=== PATIENT | female | born 1945 | race Caucasian/White ===

== ENCOUNTER 2019-08-19 07:58 | Outpatient (CLI) | payer MEDICARE, SELFPAY ==
[2019-08-19 08:12] LABS: Basophils Absolute Auto 0.09 K/mm3 (0.00-0.10); Eosinophils Absolute Auto 0.63 K/mm3 (0.02-0.50); Eosinophils Percent Auto 7.3 % (1.0-6.0); Hematocrit 40.7 % (35.0-42.0); Hemoglobin 13.6 g/dL (11.7-13.8); Immature Granulocyte Absolute 0.03 K/mm3 (0.00-0.00); Immature Granulocyte Percent A 0.3 % (0.0-0.0); Lymphocytes Absolute Auto 3.44 K/mm3 (1.10-4.50); Lymphocytes Percent Auto 39.7 % (18.0-42.0); Mean Corpuscular HGB Conc 33.4 g/dL (32.0-36.0); Mean Corpuscular Hemoglobin 30.4 pg (27.0-31.0); Mean Corpuscular Volume 91.1 fL (78.0-102.0); Mean Platelet Volume 9.8 fl (9.2-11.8); Monocytes Absolute Auto 0.75 K/mm3 (0.10-0.90); Monocytes Percent Auto 8.7 % (2.0-11.0); Neutrophils Absolute Auto 3.7 K/mm3 (1.7-7.2); Platelet Count Result 296 K/mm3 (150-420); Red Blood Count 4.47 M/mm3 (4.20-5.40); Red Cell Distribution Width 13.1 % (11.6-14.4); White Blood Count 8.7 K/mm3 (4.8-10.8)
[2019-08-19 08:34] LABS: Creatinine Urine 83.66 mg/dL (40-278); MALB Creatinine Ratio 6.4 mg/g (0-30); Microalbumin Urine Random 5.4 mg/L
[2019-08-19 09:53] LABS: Alanine Aminotransferase 32 U/L (14-59); Alkaline Phosphatase 58 U/L (46-116); Anion Gap 15.5 mmol/L (7-16); Aspartate Amino Transferase 13 U/L (15-37); Bilirubin,Total 0.4 mg/dL (0.00-1.00); Blood Urea Nitrogen 17 mg/dL (7-18); Calcium 9.4 mg/dL (8.5-10.1); Carbon Dioxide 26 mmol/L (21-32); Chloride 106 mmol/L (98-108); Cholesterol 159 mg/dL (0-200); Estimated Glomerular Filt Rate 58; Glucose 108 mg/dL (70-99); HDL Direct 59 mg/dL (40-60); LDL Cholesterol Calculated 56 mg/dL (<130); Osmolality Calculated 298 mOsm/kg (285-295); Potassium 4.5 mmol/L (3.5-5.1); Sodium 143 mmol/L (136-145); Total Protein 7.2 g/dL (6.4-8.2); Triglycerides 218 mg/dL (0-150)
== END 2019-08-19 07:59 | disposition home or self-care (01) ==
LOC: CHSLAB 08:02
PROVIDERS: PCP Nurse Practitioner Family
DX: E11.9 Type 2 diabetes mellitus without complications (principal); Z79.4 Long term (current) use of insulin
CPT/HCPCS: 36415; 80053; 80061; 82043; 84443; 85025

== ENCOUNTER 2020-02-15 08:45 | Emergency (ER) | payer MEDICARE, BC, SELFPAY ==
[2020-02-15 09:07] VITALS: BP 137/75; PULSE 102; RESP 20; TEMP 36.7; O2SAT 97
--- NOTE | 2020-02-15 09:09 | ED.DIZZY ---
HPI - Dizziness General Chief Complaint: Nausea/Vomiting/Diarrhea Stated Complaint: DIZZY VOMITTING Time Seen by Provider: 02/15/20 08:48 Source: patient Mode of arrival: ambulatory Limitations: no limitations History of Present Illness HPI Narrative: 74-year-old woman comes in today complaining of episodic dizziness and vomiting. Patient states turned her head while lying in bed yesterday morning and Had room spinning type dizziness and vomiting. It resolved after sitting still for moment. She states after she got up and was moving about, she went on with her day including mowing the lawn and eating like usual. Her symptoms recurred this morning. She denies changes in her vision, slurred speech, confusion, weakness numbness or tingling, or ataxia except during the episodes described above. She denies any recent head injury has no history of stroke or seizures. she wears hearing aids. MD elicited complaint: vertigo Onset (ago): day(s) (1) Timing: sudden onset Severity: moderate Description: sense of movement and room spinning Exacerbating factors: movement/ambulation and change in body position Relieving factors: remaining still Associated symptoms: nausea and vomiting Related Data Home Medications Medication Instructions Recorded Confirmed insulin glargine 100 unit/mL (3 45 unit SUB-Q DAILY ml 05/26/19 02/15/20 mL) subcutaneous pen liraglutide 0.6 mg/0.1 mL (18 mg/3 1.2 mg SUB-Q DAILY ml 05/26/19 02/15/20 mL) subcutaneous pen injector lisinopril 10 mg tablet 10 mg PO DAILY 05/26/19 02/15/20 metformin 500 mg tablet 500 mg PO BID 05/26/19 02/15/20 pravastatin 10 mg tablet 10 mg PO .Bedtime tablet 05/26/19 02/15/20 Allergies Allergy/AdvReac Type Severity Reaction Status Date / Time latex Allergy Intermediate Verified 08/13/14 14:04 Review of Systems Constitutional: Constitutional: Denies chills and Denies fever(s) Eyes: Eyes: Denies change in vision and Denies photophobia ENT: Denies dysphagia, Denies nasal congestion and Denies sore throat Cardiovascular: Cardiovascular: Denies chest pain and Denies radiating jaw, neck or arm pain Respiratory: Respiratory: Denies cough and Denies dyspnea Gastrointestinal: Gastrointestinal: Reports as per HPI, Denies abdominal pain, Denies diarrhea, Reports nausea and Reports vomiting Genitourinary: Genitourinary: Denies nocturia and Denies dysuria Musculoskeletal: Musculoskeletal: Denies back pain, Denies arthralgias and Denies joint swelling Integumentary/Breasts: Skin/Breast: Denies pruritus, Denies erythema and Denies rash Neurologic: Denies vertigo, Denies dizziness and Denies syncope Endocrine: Endocrine: Denies polydipsia and Denies polyuria Hematologic/Lymphatic: Hematologic/Lymphatic: Denies easy bleeding and Denies easy bruising Allergic/Immunologic: Allergic/Immunologic: Denies lip swelling, Denies tongue swelling and Denies wheezing PMFSH Past Medical History Medical History Asymptomatic postmenopausal status (age-related) (natural) Breast cancer Cataract Dizziness Hypercholesteremia Hyperlipidemia associated with type 2 diabetes mellitus Hypertension associated with diabetes Malignant neoplasm of overlapping sites of unspecified female breast Peripheral neuropathy Type 2 diabetes mellitus Vitamin D deficiency Surgical History Surgical History History of lumpectomy of right breast History of total hysterectomy History of total right knee replacement (~2009) Social History Social History Smoking status: Never smoker Alcohol intake: current Substance use: never 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
[2020-02-15] MEDS: ONDANSETRON HCL ODT 4 MG TABLET PO (09:28)
--- NOTE | 2020-02-15 10:35 | PC.NURSE ---
no emesis since zofran given. daughter at bedside.
[2020-02-15 10:37] VITALS: BP 130/67; PULSE 85; RESP 16; TEMP 36.7; O2SAT 99
== END 2020-02-15 10:39 | disposition home or self-care (01) ==
PROVIDERS: Emergency Provider Emergency Medicine; PCP Nurse Practitioner Family
DX: H81.10 Benign paroxysmal vertigo, unspecified ear (principal)
CPT/HCPCS: 99283; A9270

== ENCOUNTER 2020-02-23 07:46 | Outpatient (CLI) | payer MEDICARE, SELFPAY ==
[2020-02-23 08:34] LABS: Cholesterol 125 mg/dL (0-200); HDL Direct 53 mg/dL (40-60); LDL Cholesterol Calculated 32 mg/dL (<130); Triglycerides 198 mg/dL (0-150)
== END 2020-02-23 07:47 | disposition home or self-care (01) ==
PROVIDERS: PCP Nurse Practitioner Family
DX: E78.5 Hyperlipidemia, unspecified (principal)
CPT/HCPCS: 36415; 80061

== ENCOUNTER 2020-05-02 08:19 | Outpatient (CLI) | payer MEDICARE, BC, SELFPAY ==
--- NOTE | ~2020-05-02 | MM_ITS ---
EXAMINATION: MM screening rafael BI w irma HISTORY: Screening mammogram TECHNIQUE: Craniocaudal and mediolateral oblique 3-D tomosynthesis images were obtained and synthetic 2-D images were generated. CAD analysis was submitted and interpreted. COMPARISON: 05/01/2019, 04/28/2018, 04/15/2017 bilateral digital screening mammogram examinations BREAST PARENCHYMAL COMPOSITION: The breasts are heterogeneously dense, which may obscure small masses . FINDINGS: Stable postoperative volume loss and fibroglandular asymmetry of right breast. Occasional b ilateral benign calcifications. There is no evidence of suspicious mass, calcification, or interval a rchitectural distortion to suggest malignancy in either breast. There has been no suspicious interval change. IMPRESSION: 1. No mammographic evidence of malignancy. 2. Recommend routine screening mammography in one year. BI-RADS Category 2: Benign finding(s). Reviewed, dictated and finalized at location A.
== END 2020-05-02 08:20 | disposition home or self-care (01) ==
PROVIDERS: PCP Nurse Practitioner Family; Visit Provider Internal Medicine Hematology & Oncology
DX: Z12.31 Encounter for screening mammogram for malignant neoplasm of breast (principal)
CPT/HCPCS: 77063; 77067

== ENCOUNTER 2020-12-06 08:07 | Outpatient (CLI) | payer MEDICARE, SELFPAY ==
[2020-12-06 08:34] LABS: Creatinine Urine 218.53 mg/dL (40-278); MALB Creatinine Ratio 6.7 mg/g (0-30); Microalbumin Urine Random 14.7 mg/L
[2020-12-06 08:37] LABS: Hemoglobin A1C 6.6 % (<5.7)
[2020-12-06 09:09] LABS: Alanine Aminotransferase 36 U/L (14-59); Albumin Level 3.9 g/dL (3.4-5.0); Alkaline Phosphatase 53 U/L (46-116); Anion Gap 12 mmol/L (8-16); Aspartate Amino Transferase 13 U/L (15-37); Bilirubin,Total 0.3 mg/dL (0.00-1.00); Blood Urea Nitrogen 15 mg/dL (7-18); Calcium 9.3 mg/dL (8.5-10.1); Carbon Dioxide 26 mmol/L (21-32); Chloride 106 mmol/L (98-108); Cholesterol 136 mg/dL (0-200); Estimated Glomerular Filt Rate 49; Free T4 Free Thyroxine 0.82 ng/dL (0.76-1.46); Glucose 71 mg/dL (70-99); HDL Direct 51 mg/dL (40-60); LDL Cholesterol Calculated 43 mg/dL (<130); Osmolality Calculated 296 mOsm/kg (285-295); Potassium 4.3 mmol/L (3.5-5.1); Sodium 144 mmol/L (136-145); Thyroid Stimulating Hormone 2.18 uIU/mL (0.36-3.74); Total Protein 6.7 g/dL (6.4-8.2); Triglycerides 212 mg/dL (0-150)
== END 2020-12-06 08:08 | disposition home or self-care (01) ==
LOC: CHSLAB 08:11
PROVIDERS: PCP Nurse Practitioner Family; Visit Provider Internal Medicine Endocrinology, Diabetes & Metabolism
DX: E11.9 Type 2 diabetes mellitus without complications (principal); E78.5 Hyperlipidemia, unspecified
CPT/HCPCS: 36415; 80053; 80061; 82043; 83036; 84439; 84443

== ENCOUNTER 2020-12-13 14:11 | Outpatient (RCR) | payer MEDICARE, BC, SELFPAY ==
--- NOTE | 2020-12-13 17:56 | PTOPEVAL ---
Thank you for referring Gisele Porter to [facility].? The patient is scheduled to be seen for therapy? ____x/week for ___ weeks. Please review, sign, date and return this plan of care ESTHER. I agree with and certify that the following plan of care is medically necessary. Referring Physician Date Admitting Provider: Attending Provider: Scooby Little MD Referring Provider: *PT Outpatient Evaluation Start: 12/13/20 14:20 Freq: Status: Active Protocol: Document 12/13/20 14:00 [facility] (Rec: 12/13/20 15:08 [facility] [id number]) Therapy Assessment Status Assessment Status Assessment Status Evaluation Outpatient Past Medical History Musculoskeletal History Hx Orthopedic Surgery Yes: right knee Endocrine History Hx Diabetes Yes Reproductive History Hx Post Menopausal Yes Hx Other Reproductive Disorders Yes: right breast ca Other History Hx Cancer Yes Evaluation Information Problem Diagnosis vertigo Onset 12/05/20 Subjective Information Gisele Porter is a 75 year Query Text:As Reported By Patient/ old female who reports vertigo Family starting 3 weeks prior (). She saw an ENT with no notable discoveries. When she rolls in bed, she experiences the room feeling like it's spinning . She reports that turning to the L causes more dizziness than to the right. She experiences no dizziness when flexing forwards at the trunk, she reports occassional dizziness when performing STS . She takes no medications for BP, but reports taking Meclizine since the onset of vertigo 3 weeks prior. 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
== END 2020-12-22 09:22 | disposition home or self-care (01) ==
LOC: CHSPT 14:11
PROVIDERS: PCP Nurse Practitioner Family; Visit Provider Otolaryngology
DX: H81.10 Benign paroxysmal vertigo, unspecified ear (principal)
CPT/HCPCS: 97110; 97112; 97161

== ENCOUNTER 2021-03-29 07:47 | Outpatient (CLI) | payer MEDICARE, BC, SELFPAY ==
--- NOTE | ~2021-03-29 | MMUS_ITS ---
EXAMINATION: MM diagnostic rafael RT w irma, US breast RT complete HISTORY: History of right breast cancer. Right breast pain intermittently. TECHNIQUE: Additional 3-D tomosynthesis images of the right breast were performed and synthetic 2-D i mages were generated. CAD analysis was submitted and interpreted. High resolution complete right kyle st ultrasound was performed. COMPARISON: Comparison to multiple prior studies sequentially, with oldest reviewed study dated 03/31. BREAST PARENCHYMAL COMPOSITION: The breasts are heterogenously dense, which may obscure small masses. FINDINGS: MAMMOGRAPHIC FINDINGS: There is focal architectural distortion in the upper central right breast posteriorly, best seen on m edial lateral view. There are coarse benign appearing calcifications. ULTRASOUND: Complete right breast ultrasound: At 8:00, 5 cm from the nipple, there is a complex heterogeneous hyp oechoic mass with posterior shadowing measuring approximately 1.7 cm greatest dimension. There are in ternal coarse calcifications. At 10:00, 2 cm from the nipple, there is an irregular shaped hypoechoic mass measuring approximately 4 mm with posterior shadowing, best seen on longitudinal image, althoug h there is similar appearance on the transverse orthogonal image. IMPRESSION: 1. Right breast masses located at 8:00, 5 cm from the nipple and 10:00, 2 cm from the nipple. 2. Ultrasound-guided right breast biopsies recommended. BI-RADS category 4, suspicious findings. Reviewed, dictated and finalized at location A. IMPRESSION: 1. Right breast masses located at 8:00, 5 cm from the nipple and 10:00, 2 cm fr om the nipple. 2. Ultrasound-guided right breast biopsies recommended. BI-RADS category 4, suspicious findings.
== END 2021-03-29 07:48 | disposition home or self-care (01) ==
LOC: CHSIMG 07:48
PROVIDERS: PCP Nurse Practitioner Family; Visit Provider Nurse Practitioner Family
DX: N64.4 Mastodynia (principal); N64.59 Other signs and symptoms in breast
CPT/HCPCS: 76641; 77061; 77065; G0279

== ENCOUNTER 2021-04-05 12:25 | Outpatient (CLI) | payer MEDICARE, BC, SELFPAY ==
--- NOTE | ~2021-04-05 | US_ITS ---
EXAMINATION: US GUIDED NEEDLE BIOPSY DATE: 04/05/2021 14:28 CDT INDICATION: 8:00 right breast mass (10:00 area was scanned. No suspicious sonographic mass is identified this location.) TECHNIQUE AND FINDINGS: The risks and potential benefits of the procedure were discussed with the patient, and written inform ed consent was obtained. Timeout procedure was performed. After sterile preparation of the right kyle st, 1% lidocaine was utilized for local anesthesia. A 14G spring-loaded biopsy gun needle was advanced to the edge of the region of interest from a later al approach utilizing sonographic guidance. A total of 4 tissue core samples were obtained through t he lesion. Some brownish fluid was noted as well. An Inrad tissue marker clip was then placed at the biopsy site. Hemostasis was achieved. A sterile bandage was applied. The patient tolerated procedure well and there was no evidence of immediate complication. The patien t was given verbal instructions prior to departing from the department. A two view mammogram was perf ormed to document tissue marker clip placement. The tissue samples were submitted to surgical patholo gy for histologic analysis. IMPRESSION: 1. Successful ultrasound guided biopsy of right 8:00 breast mass with biopsy marker placement. Kelin diaz refer to pathology report for histologic analysis. Reviewed, dictated and finalized at Location A. Reviewed, dictated and finalized at location A. IMPRESSION: 1. Successful ultrasound guided biopsy of right 8:00 breast mass with biopsy m aralexy placement. Please refer to pathology report for histologic analysis.
--- NOTE | ~2021-04-05 | MM_ITS ---
MM post biopsy diagnostic RT DATE: 04/05/2021 13:41 INDICATION: Post ultrasound-guided biopsy mammogram TECHNIQUE: Digital ML and cc views following ultrasound-guided biopsy COMPARISON: 03/29/2021 diagnostic right mammogram FINDINGS: A biopsy marker is identified in the deep central right breast on MLO view. IMPRESSION: Status post ultrasound-guided biopsy of right breast 8:00 lesion Reviewed, dictated and finalized at Location A. Reviewed, dictated and finalized at location A.
== END 2021-04-05 12:26 | disposition home or self-care (01) ==
LOC: CHSIMG 12:27
PROVIDERS: PCP Nurse Practitioner Family; Visit Provider Nurse Practitioner Family
DX: N60.31 Fibrosclerosis of right breast (principal)
CPT/HCPCS: 19083; 77065; 88305; A4648

== ENCOUNTER 2021-05-03 08:19 | Outpatient (CLI) | payer MEDICARE, BC, SELFPAY ==
--- NOTE | ~2021-05-03 | MM_ITS ---
EXAMINATION: MM screening rafael BI w irma HISTORY: Screening mammogram TECHNIQUE: Craniocaudal and mediolateral oblique 3-D tomosynthesis images were obtained and synthetic 2-D images were generated. CAD analysis was submitted and interpreted. COMPARISON: 04/05/2021 right ultrasound-guided breast biopsy 03/29/2021 diagnostic right mammogram and complete right breast ultrasound 05/02/2020, 05/01/2019, 04/28/2018, 04/15/2017, 04/02/2016 bilateral digital screening mammogram examin ations BREAST PARENCHYMAL COMPOSITION: The breasts are heterogeneously dense, which may obscure small masses . FINDINGS: There is chronic volume loss of the right breast, with chronic scarring and retraction in t he mid to upper outer right breast. There is no evidence of suspicious mass, calcification, or brad ectural distortion to suggest malignancy in either breast. There has been no suspicious interval garcia ge. IMPRESSION: 1. Postoperative chronic volume loss, scarring and t retraction of right breast 2. Recommend continue with prior recommendation six-month diagnostic right mammogram and right breast ultrasound follow-up with comparison to 03/29/2021 right diagnostic mammogram and complete right kly[address] st ultrasound examinations BI-RADS Category 3: Probably benign finding Reviewed, dictated and finalized at location A. IMPRESSION: 1. Postoperative chronic volume loss, scarring and t retraction of right breast 2. Recommend continue with prior recommendation six-month diagnostic right mamm ogram and right breast ultrasound follow-up with comparison to 03/29/2021 right diagnostic mammogram and complete right breast ultrasound examinations BI-RADS Category 3: Probably benign finding
== END 2021-05-03 08:20 | disposition home or self-care (01) ==
LOC: CHSIMG 08:20
PROVIDERS: PCP Nurse Practitioner Family; Visit Provider Nurse Practitioner Family
DX: Z12.31 Encounter for screening mammogram for malignant neoplasm of breast (principal)
CPT/HCPCS: 77063; 77067

== ENCOUNTER 2021-10-17 08:07 | Outpatient (CLI) | payer MEDICARE, SELFPAY ==
[2021-10-17 08:24] LABS: Basophils Absolute Auto 0.07 K/mm3 (0.00-0.10); Basophils Percent Auto 0.8 % (0.0-1.0); Eosinophils Absolute Auto 0.64 K/mm3 (0.02-0.50); Eosinophils Percent Auto 7.3 % (1.0-6.0); Hematocrit 40.4 % (35.0-42.0); Hemoglobin 13.5 g/dL (11.7-13.8); Immature Granulocyte Absolute 0.05 K/mm3 (0.00-0.00); Immature Granulocyte Percent A 0.6 % (0.0-0.0); Lymphocytes Absolute Auto 3.09 K/mm3 (1.10-4.50); Lymphocytes Percent Auto 35.3 % (18.0-42.0); Mean Corpuscular HGB Conc 33.4 g/dL (32.0-36.0); Mean Corpuscular Hemoglobin 32.1 pg (27.0-31.0); Monocytes Absolute Auto 0.75 K/mm3 (0.10-0.90); Monocytes Percent Auto 8.6 % (2.0-11.0); Neutrophils Absolute Auto 4.2 K/mm3 (1.7-7.2); Neutrophils Percent Auto 47.4 % (50.0-70.0); Platelet Count Result 295 K/mm3 (150-420); Red Blood Count 4.21 M/mm3 (4.20-5.40); Red Cell Distribution Width 13.2 % (11.6-14.4); White Blood Count 8.8 K/mm3 (4.8-10.8)
[2021-10-17 08:36] LABS: Hemoglobin A1C 7.8 % (<5.7)
[2021-10-17 09:11] LABS: Alanine Aminotransferase 44 U/L (14-59); Albumin Level 3.8 g/dL (3.4-5.0); Alkaline Phosphatase 72 U/L (46-116); Anion Gap 11 mmol/L (8-16); Aspartate Amino Transferase 18 U/L (15-37); Bilirubin,Total 0.3 mg/dL (0.00-1.00); Blood Urea Nitrogen 22 mg/dL (7-18); Carbon Dioxide 26 mmol/L (21-32); Chloride 103 mmol/L (98-108); Cholesterol 137 mg/dL (0-200); Estimated Glomerular Filt Rate 53; Free T4 Free Thyroxine 1.02 ng/dL (0.76-1.46); Glucose 160 mg/dL (70-99); HDL Direct 54 mg/dL (40-60); LDL Cholesterol Calculated 14 mg/dL (<130); Osmolality Calculated 296 mOsm/kg (285-295); Potassium 4.5 mmol/L (3.5-5.1); Sodium 140 mmol/L (136-145); Thyroid Stimulating Hormone 2.41 uIU/mL (0.36-3.74); Total Protein 6.8 g/dL (6.4-8.2); Triglycerides 346 mg/dL (0-150)
[2021-10-21 14:37] LABS: Vitamin D 25 Hydroxy 58 ng/mL (30-100)
== END 2021-10-17 08:08 | disposition home or self-care (01) ==
LOC: CHSLAB 08:12
PROVIDERS: PCP Nurse Practitioner Family; Visit Provider Nurse Practitioner Family
DX: R63.5 Abnormal weight gain (principal); E11.59 Type 2 diabetes mellitus with other circulatory complications; I10 Essential (primary) hypertension; Z00.00 Encounter for general adult medical examination without abnormal findings; E78.5 Hyperlipidemia, unspecified; Z79.899 Other long term (current) drug therapy; E55.9 Vitamin D deficiency, unspecified
CPT/HCPCS: 36415; 80053; 80061; 82306; 83036; 84439; 84443; 85025

== ENCOUNTER 2021-11-02 08:55 | Outpatient (CLI) | payer MEDICARE, BC, SELFPAY ==
--- NOTE | ~2021-11-02 | MM_ITS ---
EXAMINATION: MM diagnostic rafael RT w irma HISTORY: Six-month follow-up TECHNIQUE: ML, MLO and craniocaudal 3-D tomosynthesis images of the right breast were performed and s ynthetic 2-D images were generated. Exaggerated lateral craniocaudal view of right breast. CAD analys is was submitted and interpreted. COMPARISON: 05/03/2021 bilateral screening mammogram 04/05/2021ight ultrasound-guided biopsy 03/29/2021iagnostic right mammogram and complete right breast ultrasound 05/02/2020, 05/01/2019, 04/28/2018bilateral screening mammogram examinations BREAST PARENCHYMAL COMPOSITION: The breasts are heterogeneously dense, which may obscure small masses . FINDINGS: Again noted is postoperative change and postbiopsy changes of the right breast, with right breast volume loss and scarring and retraction. In addition, there are benign amorphous calcification s. No interval suspicious mass or new architectural distortion, malignant calcification or new skin thic kening or retraction of the right breast is evident. IMPRESSION: 1. Status post right partial mastectomy for breast cancer; no current evidence of malignancy 2. Routine annual mammographic screening is recommended BI-RADS Category 2: Benign finding(s). Reviewed, dictated and finalized at location A.
== END 2021-11-02 08:56 | disposition home or self-care (01) ==
LOC: CHSIMG 08:57
PROVIDERS: PCP Nurse Practitioner Family; Visit Provider Nurse Practitioner Family
DX: R92.8 Other abnormal and inconclusive findings on diagnostic imaging of breast (principal)
CPT/HCPCS: 77061; 77065; G0279

== ENCOUNTER 2021-12-20 13:26 | Outpatient (CLI) | payer MEDICARE, SELFPAY ==
[2021-12-20 13:44] LABS: Bilirubin Urine Negative (Negative); Blood Urine 1+ (Negative); Glucose Urine UA 1+ (Negative); Hematocrit 35.1 % (35.0-42.0); Hemoglobin 11.3 g/dL (11.7-13.8); Ketones Urine Negative (Negative); Leukocyte Esterase Ur 2+ LEU/UL (Negative); Mean Corpuscular HGB Conc 32.2 g/dL (32.0-36.0); Mean Corpuscular Hemoglobin 30.5 pg (27.0-31.0); Mean Corpuscular Volume 94.9 fL (78.0-102.0); Mean Platelet Volume 9.9 fl (9.2-11.8); Nitrate Urine Negative (Negative); Platelet Count Result 385 K/mm3 (150-420); Protein Urine 1+ (Negative); Red Cell Distribution Width 13.5 % (11.6-14.4); Specific Grav Ur 1.025 (1.010-1.020); Urobilinogen Urine 0.2 mg/dL (0.2-1.0); pH Urine 5.5 (5.0-8.0)
[2021-12-20 13:54] LABS: Hemoglobin A1C 7.8 % (<5.7)
[2021-12-20 13:57] LABS: Add Urine Microscopic? YES; Appearance Urine Cloudy (Clear); Bacteria Urine 1+ /hpf; Color Urine Dark Yellow (Yellow); Squamous Epithelial Cell Urine Few /hpf (Few); WBC Urine >75 /hpf (0-3)
[2021-12-20 13:59] LABS: White Blood Count 23.4 K/mm3 (4.8-10.8)
[2021-12-20 14:07] LABS: Band Neutrophils Percent 0 % (0-6); Lymphocytes Absolute Manual 4.21 K/mm3 (1.1-4.5); Lymphocytes Percent Manual 18 % (18-44); Monocytes Percent Manual 6 % (3-9); Neutrophils Absolute Manual 17.55 K/mm3 (1.7-7.2); Neutrophils Percent Manual 75 % (46-73); Total Cells Counted 100
[2021-12-20 14:08] LABS: Metamyelocytes Percent 1 %; Platelet Estimate Adequate (Adequate)
[2021-12-20 14:32] LABS: Alanine Aminotransferase 29 U/L (14-59); Albumin Level 3.1 g/dL (3.4-5.0); Alkaline Phosphatase 68 U/L (46-116); Anion Gap 11 mmol/L (8-16); Aspartate Amino Transferase < 10 U/L (15-37); Bilirubin,Total 0.5 mg/dL (0.00-1.00); Blood Urea Nitrogen 31 mg/dL (7-18); Calcium 9.4 mg/dL (8.5-10.1); Carbon Dioxide 22 mmol/L (21-32); Chloride 104 mmol/L (98-108); Estimated Glomerular Filt Rate 32; Free T4 Free Thyroxine 1.05 ng/dL (0.76-1.46); Glucose 275 mg/dL (70-99); Iron 19 ug/dL (50-170); Magnesium 1.8 mg/dL (1.8-2.4); Osmolality Calculated 300 mOsm/kg (285-295); Potassium 4.8 mmol/L (3.5-5.1); Sodium 137 mmol/L (136-145); Thyroid Stimulating Hormone 1.35 uIU/mL (0.36-3.74); Total Protein 7.8 g/dL (6.4-8.2); Vitamin B12 489 pg/mL (193-986)
[2021-12-25 07:58] LABS: Vitamin D 25 Hydroxy 59 ng/mL (30-100)
== END 2021-12-20 13:27 | disposition home or self-care (01) ==
LOC: CHSLAB 13:30
PROVIDERS: PCP Nurse Practitioner Family; Visit Provider Nurse Practitioner Family
DX: R53.83 Other fatigue (principal); E11.59 Type 2 diabetes mellitus with other circulatory complications; I10 Essential (primary) hypertension; Z79.899 Other long term (current) drug therapy; R82.90 Unspecified abnormal findings in urine
CPT/HCPCS: 36415; 80053; 81001; 82306; 82607; 83036; 83540; 83735; 84439; 84443; 85025; 87077; 87086; 87088; 87186

== ENCOUNTER 2021-12-26 08:01 | Outpatient (CLI) | payer MEDICARE, SELFPAY ==
[2021-12-26 08:12] LABS: Hematocrit 34.6 % (35.0-42.0); Hemoglobin 11.2 g/dL (11.7-13.8); Mean Corpuscular HGB Conc 32.4 g/dL (32.0-36.0); Mean Corpuscular Hemoglobin 30.3 pg (27.0-31.0); Mean Corpuscular Volume 93.5 fL (78.0-102.0); Mean Platelet Volume 9.3 fl (9.2-11.8); Platelet Count Result 476 K/mm3 (150-420); Red Cell Distribution Width 13.6 % (11.6-14.4); White Blood Count 12.7 K/mm3 (4.8-10.8)
[2021-12-26 08:28] LABS: Alanine Aminotransferase 39 U/L (14-59); Albumin Level 3.1 g/dL (3.4-5.0); Alkaline Phosphatase 73 U/L (46-116); Anion Gap 12 mmol/L (8-16); Aspartate Amino Transferase 14 U/L (15-37); Bilirubin,Total 0.3 mg/dL (0.00-1.00); Blood Urea Nitrogen 19 mg/dL (7-18); Calcium 9.5 mg/dL (8.5-10.1); Carbon Dioxide 22 mmol/L (21-32); Chloride 108 mmol/L (98-108); Estimated Glomerular Filt Rate 47; Glucose 125 mg/dL (70-99); Osmolality Calculated 297 mOsm/kg (285-295); Potassium 4.4 mmol/L (3.5-5.1); Sodium 142 mmol/L (136-145); Total Protein 7.6 g/dL (6.4-8.2)
[2021-12-26 08:46] LABS: Band Neutrophils Percent 4 % (0-6); Eosinophils Absolute Manual 0.25 K/mm3 (0.02-0.5); Eosinophils Percent Manual 2 % (1-6); Lymphocytes Absolute Manual 3.17 K/mm3 (1.1-4.5); Lymphocytes Percent Manual 25 % (18-44); Monocytes Absolute Manual 0.88 K/mm3 (0.1-0.90); Monocytes Percent Manual 7 % (3-9); Myelocytes Percent 1 %; Neutrophils Absolute Manual 8.25 K/mm3 (1.7-7.2); Neutrophils Percent Manual 61 % (46-73); Platelet Estimate Increased (Adequate); Total Cells Counted 100
== END 2021-12-26 08:02 | disposition home or self-care (01) ==
LOC: CHSLAB 08:03
PROVIDERS: PCP Nurse Practitioner Family; Visit Provider Nurse Practitioner Family
DX: D72.9 Disorder of white blood cells, unspecified (principal); N28.9 Disorder of kidney and ureter, unspecified
CPT/HCPCS: 36415; 80053; 85025

== ENCOUNTER 2022-02-20 11:09 | Outpatient (CLI) | payer MEDICARE, BC, SELFPAY ==
[2022-02-20 11:30] LABS: Basophils Absolute Auto 0.1 K/mm3 (0.0-0.1); Basophils Percent Auto 0.7 % (0.2-1.2); Eosinophils Absolute Auto 0.4 K/mm3 (0-0.3); Eosinophils Percent Auto 5.2 % (0-4.4); Hematocrit 39.7 % (37.0-47.0); Immature Granulocyte Absolute 0.04 K/mm3 (0.00-0.031); Immature Granulocyte Percent A 0.5 % (0-0.5); Lymphocytes Percent Auto 34.3 % (18.3-44.2); Mean Corpuscular HGB Conc 32.7 g/dl (32-36); Mean Corpuscular Hemoglobin 30.1 pg (26-34); Mean Corpuscular Volume 91.9 fl (80-100); Mean Platelet Volume 10.2 fl (7.4-10.4); Monocytes Absolute Auto 0.7 K/mm3 (0.1-0.6); Monocytes Percent Auto 8.7 % (2.6-8.5); Neutrophils Absolute Auto 4.3 K/mm3 (1.3-6.7); Neutrophils Percent Auto 50.6 % (45.5-73.1); Platelet Count Result 273 k/mm3 (150-375); Red Blood Count 4.32 M/mm3 (4.2-5.4); Red Cell Distribution Width 13.2 % (11.5-14.5); White Blood Count 8.5 K/mm3 (4.5-10.0)
[2022-02-20 12:29] LABS: Alanine Aminotransferase 30 U/L (6-35); Albumin Level 4.4 g/dL (3.5-5.1); Alkaline Phosphatase 57 U/L (38-126); Anion Gap 12 mmol/L (8-16); Aspartate Amino Transferase 22 U/L (14-36); Bilirubin,Total 0.3 mg/dL (0.2-1.3); Blood Urea Nitrogen 15 mg/dL (7-17); CRP < 0.5 mg/dL (<1.0); Calcium 9.4 mg/dL (8.4-10.2); Carbon Dioxide 24 mmol/L (22-30); Chloride 103 mmol/L (98-107); Estimated Glomerular Filt Rate > 60; Glucose 208 mg/dL (65-110); Potassium 4.5 mmol/L (3.4-5.0); Sodium 139 mmol/L (137-145)
[2022-02-20 12:47] LABS: Erythrocyte Sedimentation Rate 11 mm/hr (0-20)
== END 2022-02-20 11:10 | disposition home or self-care (01) ==
LOC: ANHLAB 11:12
PROVIDERS: PCP Nurse Practitioner Family; Visit Provider Internal Medicine Hematology & Oncology
DX: D72.829 Elevated white blood cell count, unspecified (principal)
CPT/HCPCS: 36415; 80053; 85025; 85652; 86140

== ENCOUNTER 2022-05-08 07:25 | Outpatient (CLI) | payer MEDICARE, BC, SELFPAY ==
--- NOTE | ~2022-05-08 | MM_ITS ---
EXAMINATION: MM screening rafael BI w irma HISTORY: Screening mammogram, family history of breast cancer in her sister, personal history of lump ectomy on the right. TECHNIQUE: Craniocaudal and mediolateral oblique 3-D tomosynthesis images were obtained and synthetic 2-D images were generated. CAD analysis was submitted and interpreted. COMPARISON: 11/02/2021, 05/03/2021, 03/29/2021, 05/02/2020 BREAST PARENCHYMAL COMPOSITION: The breasts are heterogeneously dense, which may obscure small masses . FINDINGS: No suspicious mass, calcification, or architectural distortion are identified in either elza ast to suggest malignancy. There has been no suspicious interval change. IMPRESSION: 1. No mammographic evidence of malignancy. 2. Recommend routine screening mammography in one year. BI-RADS Category 1: Negative Reviewed, dictated and finalized at location A.
== END 2022-05-08 07:26 | disposition home or self-care (01) ==
LOC: CHSIMG 07:27
PROVIDERS: PCP Nurse Practitioner Family; Visit Provider Nurse Practitioner Family
DX: Z12.31 Encounter for screening mammogram for malignant neoplasm of breast (principal)
CPT/HCPCS: 77063; 77067

== ENCOUNTER 2022-08-15 08:50 | Outpatient (CLI) | payer MEDICARE, BC, SELFPAY ==
[2022-08-15 11:10] LABS: Alanine Aminotransferase 44 U/L (14-59); Albumin Level 3.9 g/dL (3.4-5.0); Alkaline Phosphatase 61 U/L (46-116); Anion Gap 6 mmol/L (8-16); Aspartate Amino Transferase 23 U/L (15-37); Bilirubin,Total 0.4 mg/dL (0.00-1.00); Blood Urea Nitrogen 19 mg/dL (7-18); Calcium 8.9 mg/dL (8.5-10.1); Carbon Dioxide 29 mmol/L (21-32); Chloride 105 mmol/L (98-108); Estimated Glomerular Filt Rate 54; Glucose 155 mg/dL (70-99); Osmolality Calculated 295 mOsm/kg (285-295); Potassium 4.4 mmol/L (3.5-5.1); Sodium 140 mmol/L (136-145); Total Protein 6.9 g/dL (6.4-8.2)
[2022-08-15 11:11] LABS: Hemoglobin A1C 7.6 % (<5.7)
[2022-08-15 11:23] LABS: Basophils Absolute Auto 0.05 K/mm3 (0.00-0.10); Basophils Percent Auto 0.7 % (0.0-1.0); Eosinophils Absolute Auto 0.57 K/mm3 (0.02-0.50); Eosinophils Percent Auto 7.5 % (1.0-6.0); Hematocrit 40.1 % (35.0-42.0); Hemoglobin 13.3 g/dL (11.7-13.8); Immature Granulocyte Absolute 0.04 K/mm3 (0.00-0.00); Immature Granulocyte Percent A 0.5 % (0.0-0.0); Lymphocytes Absolute Auto 2.41 K/mm3 (1.10-4.50); Lymphocytes Percent Auto 31.8 % (18.0-42.0); Mean Corpuscular HGB Conc 33.2 g/dL (32.0-36.0); Mean Corpuscular Hemoglobin 31.2 pg (27.0-31.0); Mean Corpuscular Volume 94.1 fL (78.0-102.0); Monocytes Absolute Auto 0.69 K/mm3 (0.10-0.90); Monocytes Percent Auto 9.1 % (2.0-11.0); Neutrophils Absolute Auto 3.8 K/mm3 (1.7-7.2); Neutrophils Percent Auto 50.4 % (50.0-70.0); Platelet Count Result 299 K/mm3 (150-420); Red Blood Count 4.26 M/mm3 (4.20-5.40); Red Cell Distribution Width 12.9 % (11.6-14.4); White Blood Count 7.6 K/mm3 (4.8-10.8)
== END 2022-08-15 08:51 | disposition home or self-care (01) ==
LOC: CHSLAB 08:53
PROVIDERS: PCP Nurse Practitioner Family; Visit Provider Nurse Practitioner Family
DX: E11.40 Type 2 diabetes mellitus with diabetic neuropathy, unspecified (principal); I10 Essential (primary) hypertension; E78.00 Pure hypercholesterolemia, unspecified; Z79.4 Long term (current) use of insulin
CPT/HCPCS: 36415; 80053; 83036; 85025

== ENCOUNTER 2022-09-06 09:45 | Outpatient (CLI) | payer MEDICARE, BC, SELFPAY ==
[2022-09-06 10:04] LABS: Basophils Absolute Auto 0.1 K/mm3 (0.0-0.1); Basophils Percent Auto 0.6 % (0.2-1.2); Eosinophils Absolute Auto 0.4 K/mm3 (0-0.3); Eosinophils Percent Auto 4.7 % (0-4.4); Hematocrit 38.9 % (37.0-47.0); Hemoglobin 12.9 g/dL (12.0-15.0); Immature Granulocyte Absolute 0.04 K/mm3 (0.00-0.031); Immature Granulocyte Percent A 0.5 % (0-0.5); Lymphocytes Absolute Auto 2.37 K/mm3 (0.9-3.2); Lymphocytes Percent Auto 30.6 % (18.3-44.2); Mean Corpuscular HGB Conc 33.2 g/dl (32-36); Mean Corpuscular Hemoglobin 30.9 pg (26-34); Mean Corpuscular Volume 93.3 fl (80-100); Mean Platelet Volume 9.8 fl (7.4-10.4); Monocytes Absolute Auto 0.7 K/mm3 (0.1-0.6); Monocytes Percent Auto 8.7 % (2.6-8.5); Neutrophils Absolute Auto 4.3 K/mm3 (1.3-6.7); Neutrophils Percent Auto 54.9 % (45.5-73.1); Platelet Count Result 267 k/mm3 (150-375); Red Blood Count 4.17 M/mm3 (4.2-5.4); Red Cell Distribution Width 12.7 % (11.5-14.5); White Blood Count 7.7 K/mm3 (4.5-10.0)
[2022-09-06 10:12] LABS: Blood Urea Nitrogen 25 mg/dL (8-26); Carbon Dioxide 25 mmol/L (22-30); Chloride 104 mmol/L (98-109); Estimated Glomerular Filt Rate 48; Glucose 253 mg/dL (70-105); Ionized Calcium (POC) 1.21 mmol/L (1.11-1.31); Potassium 4.4 mmol/L (3.5-4.9); Sodium 140 mmol/L (138-146)
[2022-09-07 07:51] LABS: Alanine Aminotransferase 38 U/L (6-35); Albumin Level 4.2 g/dL (3.5-5.1); Alkaline Phosphatase 63 U/L (38-126); Anion Gap 9 mmol/L (8-16); Aspartate Amino Transferase 33 U/L (14-36); Bilirubin,Total 0.5 mg/dL (0.2-1.3); Blood Urea Nitrogen 25 mg/dL (7-17); Calcium 9.1 mg/dL (8.4-10.2); Carbon Dioxide 23 mmol/L (22-30); Chloride 106 mmol/L (98-107); Estimated Glomerular Filt Rate 54; Glucose 240 mg/dL (65-110); Potassium 4.5 mmol/L (3.4-5.0); Sodium 138 mmol/L (137-145)
== END 2022-09-06 09:46 | disposition home or self-care (01) ==
LOC: ANHLAB 09:47
PROVIDERS: PCP Nurse Practitioner Family; Visit Provider Internal Medicine Hematology & Oncology
DX: D72.829 Elevated white blood cell count, unspecified (principal)
CPT/HCPCS: 36415; 80047; 80053; 85025

== ENCOUNTER 2022-12-12 08:34 | Outpatient (CLI) | payer MEDICARE, SELFPAY ==
[2022-12-12 09:16] LABS: Hemoglobin A1C 8.4 % (<5.7)
[2022-12-12 09:20] LABS: Creatinine Urine 71.66 mg/dL (40-278); MALB Creatinine Ratio 18.1 mg/g (0-30); Microalbumin Urine Random < 13.0 mg/L
[2022-12-12 09:35] LABS: Alanine Aminotransferase 54 U/L (14-59); Albumin Level 3.5 g/dL (3.4-5.0); Alkaline Phosphatase 69 U/L (46-116); Anion Gap 11 mmol/L (8-16); Aspartate Amino Transferase 27 U/L (15-37); Bilirubin,Total 0.5 mg/dL (0.00-1.00); Blood Urea Nitrogen 19 mg/dL (7-18); Calcium 8.9 mg/dL (8.5-10.1); Carbon Dioxide 25 mmol/L (21-32); Chloride 105 mmol/L (98-108); Cholesterol 148 mg/dL (0-200); Estimated Glomerular Filt Rate 52; Free T4 Free Thyroxine 0.87 ng/dL (0.76-1.46); Glucose 199 mg/dL (70-99); HDL Direct 53 mg/dL (40-60); LDL Cholesterol Calculated 59 mg/dL (<130); Osmolality Calculated 300 mOsm/kg (285-295); Potassium 4.5 mmol/L (3.5-5.1); Sodium 141 mmol/L (136-145); Thyroid Stimulating Hormone 1.68 uIU/mL (0.36-3.74); Total Protein 6.6 g/dL (6.4-8.2); Triglycerides 180 mg/dL (0-150)
== END 2022-12-12 08:35 | disposition home or self-care (01) ==
LOC: CHSLAB 08:38
PROVIDERS: PCP Nurse Practitioner Family; Visit Provider Internal Medicine Endocrinology, Diabetes & Metabolism
DX: E11.9 Type 2 diabetes mellitus without complications (principal); E78.5 Hyperlipidemia, unspecified
CPT/HCPCS: 36415; 80053; 80061; 82043; 83036; 84439; 84443

== ENCOUNTER 2023-01-21 15:36 | Outpatient (CLI) | payer MEDICARE, BC, SELFPAY ==
--- NOTE | ~2023-01-21 | XR_ITS ---
EXAMINATION: XR_[id number]_CR DATE: 01/21/2023 16:09 INDICATION: Right knee pain. TECHNIQUE: 2 views of right knee were obtained. COMPARISON: Right knee radiograph 12/26/2009 FINDINGS: There is a total right knee arthroplasty with patellar resurfacing in near-anatomic alignme nt. No periprosthetic lucency to suggest loosening or infection. No fracture. No knee joint effusion. There are loose bodies in the knee joint posteriorly. IMPRESSION: 1. Total right knee arthroplasty in near-anatomic alignment. 2. Loose bodies in the knee joint posteriorly. Reviewed, dictated and finalized at location E.
--- NOTE | ~2023-01-21 | XR_ITS ---
EXAMINATION: XR_[id number]_CR DATE: 01/21/2023 16:09 INDICATION: Left knee pain. TECHNIQUE: 2 views of left knee were obtained. COMPARISON: None. FINDINGS: Bone alignment is normal. No fracture. There is mild osteoarthritis of medial and patellofe moral compartments characterized by tiny marginal osteophytes. No joint space narrowing. No knee join t effusion. IMPRESSION: 1. Mild left knee osteoarthritis. Reviewed, dictated and finalized at location E.
== END 2023-01-21 15:37 | disposition home or self-care (01) ==
LOC: CHSIMG 15:39
PROVIDERS: PCP Nurse Practitioner Family; Visit Provider Nurse Practitioner Family
DX: M25.562 Pain in left knee (principal); M25.561 Pain in right knee; Z96.651 Presence of right artificial knee joint; M23.41 Loose body in knee, right knee; M17.12 Unilateral primary osteoarthritis, left knee
CPT/HCPCS: 73560

== ENCOUNTER 2023-03-14 10:05 | Outpatient (CLI) | payer MEDICARE, BC, SELFPAY ==
--- NOTE | ~2023-03-14 | DEXA_ITS ---
Bone Density Report Name: HODAN JARRETT Age: 77 Sex: Female Ethnicity: White Date of : 1945 Indication: postmenopausal; screening for osteoporosis; height loss; cancer; hysterectomy; Referring Provider: SOPHIA LEWIS Study: Bone densitometry was performed. Exam Date: March 14, 2023 Accession number: [id number] Bone Density: Region BMD T-score Z-score Classification AP Spine(L1-L4) 1.277 2.1 4.7 Normal Femoral Neck (Left) 1.118 2.4 4.6 Normal Total Hip (Left) 1.334 3.2 5.2 Normal Femoral Neck (Right) 1.014 1.5 3.7 Normal Total Hip (Right) 1.268 2.7 4.6 Normal Femoral Neck Mean 1.066 2.0 4.2 Normal Total Hip Mean 1.301 2.9 4.9 Normal World Health Organization criteria for BMD impression classify patients as: Normal (T-score at or above -1.0), Osteopenia (T-score between -1.0 and -2.5), or Osteoporosis (T-score at or below -2.5). 10-year Fracture Risk: FRAX not reported because: All T-scores for Spine Total, Hip Total, Femoral Neck at or above -1.0 Clinical Information Provided by Patient: Has used the following medications: Calcium Has the following medical conditions: Cancer, Hysterectomy Patient maximum height was 65 Onset of menses at age 15 Number of children 2 Impression: The patient has normal bone mass. Discussion: LOW RISK OF FRACTURE; BONE DENSITY IS WELL ABOVE THE MINIMUM DESIRABLE LEVEL AND ABOVE AVERAGE FOR AGE AND SEX AT ALL SKELETAL SITES TESTED. This person's bone density is above expected limits for age and sex. This is rarely clinically significant, but should be pursued if there are significant musculoskeletal complaints. The patient should follow a healthful lifestyle (good nutrition with adequate calcium and vitamin D, and appropriate weight-bearing exercise). Follow-Up: Consider repeating this study in 5 years or sooner if there is some new clinical indication. Reported by: Dr. Junaid Busch on 03/14/2023 10:32:00 AM. Reviewed, dictated and finalized at location A. [facility] HOSPITALShyla
== END 2023-03-14 10:06 | disposition home or self-care (01) ==
LOC: CHSIMG 10:06
PROVIDERS: PCP Nurse Practitioner Family; Visit Provider Nurse Practitioner Family
DX: Z78.0 Asymptomatic menopausal state (principal)
CPT/HCPCS: 77080

== ENCOUNTER 2023-06-10 14:03 | Outpatient (CLI) | payer MEDICARE, BC, SELFPAY ==
--- NOTE | ~2023-06-10 | MM_ITS ---
EXAMINATION: MM screening rafael BI w irma HISTORY: Screening mammogram TECHNIQUE: Craniocaudal and mediolateral oblique 3-D tomosynthesis images were obtained and synthetic 2-D images were generated. CAD analysis was submitted and interpreted. COMPARISON: 05/08/2022 bilateral screening mammogram 11/02/2021 diagnostic right mammogram 05/03/2021 bilateral screening mammogram BREAST PARENCHYMAL COMPOSITION: The breasts are heterogeneously dense, which may obscure small masses . FINDINGS: Postoperative change from right partial mastectomy for breast cancer is again noted, stable in appearance since 05/03/2021. Questionable 3 x 5 mm mass in the posterior central left breast (MLO Tomosynthesis image 31/58), with out definite correlate identified on the CC views. Diagnostic left mammogram is recommended, with ult rasound if required. Otherwise no interval new or developing mass, malignant calcification or new architectural distortion , skin thickening or retraction of either breast is detected. IMPRESSION: 1. Status post right partial mastectomy for breast cancer. 2. Cannot exclude new 3 x 5 mm mass in posterior central left breast on MLO view; diagnostic left rafael mogram is recommended, with ultrasound if required BI-RADS Category 0: Incomplete: Needs additional imaging evaluation. Reviewed, dictated and finalized at location A. 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 Status post right partial mastectomy for breast cancer. 2. Cannot exclude new 3 x 5 mm mass in posterior central left breast on MLO vie w; diagnostic left mammogram is recommended, with ultrasound if required BI-RADS Category 0: Incomplete: Needs additional imaging evaluation.
== END 2023-06-10 14:04 | disposition home or self-care (01) ==
LOC: CHSIMG 14:04
PROVIDERS: PCP Nurse Practitioner Family; Visit Provider Nurse Practitioner Family
DX: Z12.31 Encounter for screening mammogram for malignant neoplasm of breast (principal); R92.8 Other abnormal and inconclusive findings on diagnostic imaging of breast
CPT/HCPCS: 77063; 77067

== ENCOUNTER 2023-06-21 09:41 | Outpatient (CLI) | payer MEDICARE, BC, SELFPAY ==
--- NOTE | ~2023-06-21 | MMUS_ITS ---
EXAMINATION: MM diagnostic rafael LT w irma, US breast LT limited HISTORY: Possible left breast mass on screening mammogram TECHNIQUE: Additional 3-D tomosynthesis images of the left breast were performed and synthetic 2-D im ages were generated. CAD analysis was submitted and interpreted. High resolution limited left breast ultrasound was performed. COMPARISON: 06/10/2023, 05/08/2022, 05/04/2021 FINDINGS: MAMMOGRAPHIC FINDINGS: There is a return to baseline fibroglandular appearance with spot compression of the left breast in t he area questioned on screening mammogram. ULTRASOUND: There is no evidence of focal abnormal solid or cystic mass in the vicinity of the mammographic findi ng in question. IMPRESSION: 1. No mammographic or sonographic evidence of malignancy. 2. Recommend routine screening mammography in one year. BI-RADS Category 1: Negative Reviewed, dictated and finalized at location A. 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 No mammographic or sonographic evidence of malignancy. 2. Recommend routine screening mammography in one year. BI-RADS Category 1: Negative
== END 2023-06-21 09:42 | disposition home or self-care (01) ==
LOC: CHSIMG 09:42
PROVIDERS: PCP Nurse Practitioner Family; Visit Provider Nurse Practitioner Family
DX: R92.8 Other abnormal and inconclusive findings on diagnostic imaging of breast (principal)
CPT/HCPCS: 76642; 77061; 77065; G0279

== ENCOUNTER 2023-11-08 08:48 | Outpatient (CLI) | payer MEDICARE, SELFPAY ==
[2023-11-08 09:25] LABS: Basophils Absolute Auto 0.07 K/mm3 (0.00-0.10); Eosinophils Absolute Auto 0.55 K/mm3 (0.02-0.50); Hematocrit 41.9 % (35.0-42.0); Hemoglobin 13.7 g/dL (11.7-13.8); Immature Granulocyte Absolute 0.03 K/mm3 (0.00-0.00); Immature Granulocyte Percent A 0.4 % (0.0-0.0); Lymphocytes Percent Auto 24.8 % (18.0-42.0); Mean Corpuscular HGB Conc 32.7 g/dL (32-36); Mean Corpuscular Hemoglobin 29.9 pg (27.0-31.0); Mean Corpuscular Volume 91.5 fL (78.0-102.0); Mean Platelet Volume 10.3 fl (9.2-11.8); Monocytes Percent Auto 8.8 % (2.0-11.0); Platelet Count Result 289 K/mm3 (150-420); Red Blood Count 4.58 M/mm3 (4.20-5.40); Red Cell Distribution Width 12.5 % (11.6-14.4); White Blood Count 6.9 K/mm3 (4.8-10.8)
[2023-11-08 09:42] LABS: Hemoglobin A1C 8.1 % (<5.7)
[2023-11-08 10:00] LABS: Alanine Aminotransferase 32 U/L (14-59); Albumin Level 3.8 g/dL (3.4-5.0); Alkaline Phosphatase 61 U/L (46-116); Anion Gap 10 mmol/L (4-12); Aspartate Amino Transferase 14 U/L (15-37); Bilirubin,Total 0.5 mg/dL (0.00-1.00); Blood Urea Nitrogen 19 mg/dL (7-18); Calcium 9.3 mg/dL (8.5-10.1); Carbon Dioxide 28 mmol/L (21-32); Chloride 105 mmol/L (98-108); Cholesterol 138 mg/dL (0-200); Estimated Glomerular Filt Rate 51; Glucose 174 mg/dL (70-99); HDL Direct 69 mg/dL (40-60); LDL Cholesterol Calculated 46 mg/dL (<130); Magnesium 1.4 mg/dL (1.8-2.4); Osmolality Calculated 302 mOsm/kg (285-295); Potassium 4.8 mmol/L (3.5-5.1); Sodium 143 mmol/L (136-145); Total Protein 6.7 g/dL (6.4-8.2); Triglycerides 114 mg/dL (0-150)
[2023-11-10 06:43] LABS: Vitamin D 25 Hydroxy 53 ng/mL (30-100)
== END 2023-11-08 08:49 | disposition home or self-care (01) ==
LOC: CHSLAB 08:53
PROVIDERS: PCP Nurse Practitioner Family; Visit Provider Nurse Practitioner Family
DX: E78.00 Pure hypercholesterolemia, unspecified (principal); E55.9 Vitamin D deficiency, unspecified; Z79.899 Other long term (current) drug therapy; I10 Essential (primary) hypertension; E11.40 Type 2 diabetes mellitus with diabetic neuropathy, unspecified
CPT/HCPCS: 36415; 80053; 80061; 82306; 83036; 83735; 85025

== ENCOUNTER 2024-07-03 14:00 | Outpatient (CLI) | payer MEDICARE, BC, SELFPAY ==
--- NOTE | ~2024-07-03 | MM_ITS ---
EXAMINATION: MM screening rafael BI w irma HISTORY: Screening TECHNIQUE: Craniocaudal and mediolateral oblique 3-D tomosynthesis images were obtained and synthetic 2-D images were generated. CAD analysis was submitted and interpreted. COMPARISON: Comparison to multiple prior studies sequentially, with oldest reviewed study dated 04/15. BREAST PARENCHYMAL COMPOSITION: Dense: The breasts are heterogeneously dense, which may obscure small masses FINDINGS: There is no evidence of suspicious mass, calcification, or architectural distortion to sugg est malignancy in either breast. There has been no suspicious interval change. IMPRESSION: 1. No mammographic evidence of malignancy. 2. Recommend routine screening mammography in one year. BI-RADS Category 1: Negative Reviewed, dictated and finalized at location B. 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
== END 2024-07-03 14:01 | disposition home or self-care (01) ==
LOC: CHSIMG 14:03
PROVIDERS: PCP Nurse Practitioner Family; Visit Provider Nurse Practitioner Family
DX: Z12.31 Encounter for screening mammogram for malignant neoplasm of breast (principal)
CPT/HCPCS: 77063; 77067

== ENCOUNTER 2024-09-21 08:01 | Outpatient (CLI) | payer MEDICARE, BC, SELFPAY ==
--- NOTE | ~2024-09-21 | XR_ITS ---
XR knee LT min 4V Ordering provider: Steven Gamble MD History: . LT knee pain all over, HX of RT TKR . Comparison: None. FINDINGS: BONES: No acute fracture or dislocation. JOINT SPACES: Narrowing of the medial compartment. SOFT TISSUES: Minimal fluid in the suprapatellar bursa. IMPRESSION: No acute osseous abnormality left knee. Severe osteoarthritic changes. Reviewed, dictated and finalized at location A.
--- OUTSIDE RECORDS SUMMARY | 2024-09-21 08:11 | XMS_ITS ---
Author Organization [facility] Address [address] [place], [place] [id number] Care Team Providers Care Vessel Manager Name Role Phone NILO GLASS Unavailable [phone] Sanchezjoseyan Riddhi Unavailable Unavailable SHON Coyne Unavailable [phone] Allergies Allergen (clinical drug ingredient) Drug/Non Drug Allergy documented on EMR Reaction Allergy Type Onset Date Status Latex Latex Unknown Allergy 05/25/2022 active REASON FOR VISIT *General care Medications Medication SIG (Take, Route, Frequency, Duration) Notes Start Date End Date Status Meloxicam 7.5 MG Oral for 30 Days Active BD Pen Needle [place] 2nd Gen 32G X 4 MM for 90 Days Active Pravastatin Sodium 80 MG Oral for 90 Days Active Lantus SoloStar 100 UNIT/ML Subcutaneous for 100 Days Ac tive Glimepiride 1 MG Oral for 90 Days Active Lisinopril 10 MG Oral for 90 Days Active metFORMIN HCl 1000 MG Oral for 90 Days Active Vital Signs Height 65.00 in 04/18/2023 Weight 175 lbs 04/18/2023 BMI 29.12 kg/m2 04/18/2023 Height-cm 165.10 cm 04/18/2023 Weight-kg 79.38 kg 04/18/2023 Encounters Encounter [place] Date [place] [facility] [place] [address] [id number] 04/18/2023 SHON Coyne Onychomycosis B35.1 ; Pain in right toe(s) M79.674 ; Pain in left toe(s) M79.675 ; Atherosclerosis of [place] arteries of extremities with intermittent claudication, bilateral legs I70.213 and Type 2 diabetes mellitus without complication, without long-term current use of insulin E11.9 Assessments Encounter Date Diagnosis (ICD Code) Assessment Notes Treatment Notes Treatment Clinical Notes Section Notes 04/18/2023 Onychomycosis (ICD-10 - B35.1) NAIL DEBRIDEMENT: Nails 1-5 Bilateral were debrided extensively with nail nippers and emery board, reducing length and girth to pink healthy tissue with any subungual debris and necrotic tissue removed 04/18/2023 Pain in right toe(s) (ICD-10 - M79.674) 04/18/2023 Pain in left toe(s) (ICD-10 - M79.675) 04/18/2023 Atherosclerosis of [place] arteries of extremities with intermittent claudication, bilateral legs (ICD-10 - I70.213) 04/18/2023 Type 2 diabetes mellitus without complication, without long-term current use of insulin (ICD-10 - E11.9) DIABETIC FOOT CARE: Both feet were examined today. Diabetic preventive care provided as documented. Diabetic foot care education discussed today to including: daily foot inspections, appropriate protective shoe gear, and strict glycemic control. Patient to return to the office routinely for preventive diabetic foot care or sooner if patient notices any acute changes. 04/18/2023 Other Shoe Gear Recommendation: Advised patient on appropriate shoe gear for protection, healing and good foot health Emollient: Recommend that the patient use an emollient such as [id number] r Eucerin cream, Vanicream, or other lotion to the affected area. Plan Of Treatment Treatment Notes Assessment Notes Onychomycosis NAIL DEBRIDEMENT: Na ils 1-5 Bilateral were debrided extensively with nail nippers and emery board, reducing length and girth to pink healthy tissue with any subungual debris and necrotic tissue removed Type 2 diabetes mellitus wit hout complication, without long-term current use of insulin DIABETIC FOOT CARE: Both feet were examined today. Diabetic preventive care provided as documented. Diabetic foot care education discussed today to including: daily foot inspections, appropriate protective shoe gear, and strict glycemic control. Patient to return to the office routinely for preventive diabetic foot care or sooner if patient notices any acute changes. Other Shoe Gear Recommendation: Advised patient on appropriate shoe gear for protection, healing and good foot health Emollient: Recommend that the patient use an emollient such as [id number] Eucerin cream, Vanicream, or other lotion to the affected area. Next Appt Details Follow Up: 9 weeks, Reason: at risk foot care Progress Notes * HODAN JARRETTDOB: [birth year] (77 yo F)Acc No.[id number]:04/18/2023 Patient: HODAN WILSON Provider: Johnnie Otero DPM :1945 A ge:77 Y S ex:Female Date:04/18/2023 Address:[address] [place] [address] Subjective: * Chief Complaints: * 1 . *General care. * HPI: H PI: General care P atient presents to the office for diabetic foot care. Patient states that their nails are thickened, elongated and painful. Patient states that it is aggravated by shoe gear. Onset is gradual. P atient denies taking prescription blood thinners but does take a daily aspirin., D ate last seen by Dr. Salazar was Mar., I nitials . * ROS: G eneral / Constitutional: Patient denies c hills, fatigue, fever. C ardiovascular: Patient denies c ongenital heart problems, palpatations, shortness of breath. P atient complains of h air loss on legs. M usculoskeletal: Patient denies o rthotic use, broken foot bone, muscle cramps. S kin: Patient complains of f ungal nails, dry skin, nail changes.? N eurologic: Patient denies s troke, loss of use of extremity, confusion. * Medical History: * Medications: T aking Lisinopril 10 MG Tablet Oral , Taking metFORMIN HCl 1000 MG Tablet Oral , Taking Pravastatin Sodium 80 MG Tablet Oral , Taking BD Pen Needle Cort[place] 2nd Gen 32G X 4 MM Miscellaneous , Taking Glimepiride 1 MG Tablet Oral , Taking Lantus SoloStar 100 UNIT/ML Solution Pen-injector Subcutaneous , Taking Meloxicam 7.5 MG Tablet Oral * Allergies: L atex: Allergy - Onset Date 05/25/2022. Objective: * Vitals: W t: 175 lbs, Wt-k.38 kg, Ht: 65.00 in, Ht-cm: 165.10 cm, BMI: 29.12 Index, Body Surface Area: 1.91. * Examination: C onstitutional: Constitutional T he patient is awake, alert, well developed, well groomed and well nourished.. M usculoskeletal: Muscle Strength M uscle strength is 5/5 in regards to dorsiflexion, plantarflexion, inversion, and eversion in bilateral lower extremities.. Foot Structure T he foot structure is noted to be, normal, bilaterally. Gait T here is normal gait noted. N eurologic: Vibratory: n ormal, bilateral. [place] 5.07 monofilament I ntact protective sensation via 5.07 g swmf bilateral. Gross sensation G ross sensation is intact to light touch..? V ascular: Dorsalis pedis pulse: 1 /4, bilateral. Posterior tibial pulse: 0 /4, bilaterally. Capillary refill: l ess than 3 seconds, bilaterally. ? D ermatologic: Skin findings: S kin is thin, atrophic and lacking pedal hair.. Nail pathology: N ails 1-5 bilateral are elongated, thick, discolored, and dystrophic with subungual debris. They are painful to palpation. Hyperkeratotic Skin Lesion T here is no evidence of hyperkeratosis. Assessment: * Assessment: 1. O nychomycosis - B35.1 (Primary) 2 . P ain in right toe(s) - M79.674 3 . P ain in left toe(s) - M79.675 4 . A therosclerosis of [place] arteries of extremities with intermittent claudication, bilateral legs - I70.213 5 . T ype 2 diabetes mellitus without complication, without long-term current use of insulin - E11.9 Plan: * Treatment: 2. T ype 2 diabetes mellitus without complication, without long-term current use of insulin Notes: DIABETIC FOOT CARE: Both feet were examined today. Diabetic preventive care provided as documented. Diabetic foot care education discussed today to including: daily foot inspections, appropriate protective shoe gear, and strict glycemic control. Patient to return to the office routinely for preventive diabetic foot care or sooner if patient notices any acute changes. 3. O thers Notes: Shoe Gear Recommendation: Advised patient on appropriate shoe gear for protection, healing and good foot health Emollient: Recommend that the patient use an emollient such as [id number]-fvkktzn Eucerin cream, Vanicream, or other lotion to the affected area. . * Procedure Codes: 1 1721 DEBRIDE NAIL, 6 OR MORE, Modifiers: Q8 * Follow Up: 9 weeks (Reason: at risk foot care) * Billing Information: * Visit Code: * Procedure Codes: 27612 DEBRIDE NAIL, 6 OR MORE. Modifiers: Q8 * Sign off status: Completed true * Provider: Johnnie Otero DPM Date: Generated for Tori ureña/Norma/David on: 0 09/21/2024 08:11 AM CDT History and Physical Notes * HPI (History of Present Illness) Category Sub-Category Detail Notes Category Not es HPI General care Patient presents to the office for diabetic foot care. Patient states that their nails are thickened, elongated and painful. Patient states that it is aggravated by shoe gear. Onset is gradual. Patient denies taking prescription blood thinners but does take a daily aspirin., Date last seen by Dr. Salazar was Mar., Initials Examination Category Sub-Category Detail Notes Category Not es Dermatologic Skin findings: Skin is thin, at rophic and lacking pedal hair. Nail pathology: Nails 1-5 bilateral are elongated, thick, discolored, and dystrophic with subungual debris. They are painful to palpation Hyperkeratotic Skin Lesion There is no e vidence of hyperkeratosis Neurologic Vibratory: normal, bilateral [place] 5.07 monofilament Intact protective sensation via 5.07 g swmf bilateral Gross sensation Gross sensation is i ntact to light touch. Vascular Dorsalis pedis pulse: 1/4, bilateral Capillary refill: less than 3 seconds, bilaterally Posterior tibial pulse: 0/4, bilaterally Musculoskeletal Muscle Strength Muscle strength is 5/5 in regards to dorsiflexion, plantarflexion, inversion, and eversion in bilateral lower extremities. Foot Structure The foot structure i s noted to be, normal, bilaterally Gait There is normal gait noted Constitutional Constitutional The patient is a wake, alert, well developed, well groomed and well nourished.
--- OUTSIDE RECORDS SUMMARY | 2024-09-21 08:11 | XMS_ITS | Clinical Summary ---
Author Organization [facility] Address [address] [place] [address] Care Team Providers Care Director Business Integration Name Role Phone Abraham Crowe DO Primary Care Provider [phone] Allergies Active Allergy Reactions Criticality Noted Date Comments Latex Rash Low 05/04/2016 Medications Docosahexanoic Acid-Eicosapent 120-180 mg Capsule Take 1 Capsule by mouth daily. Active insulin degludec (Tresiba FlexTouch U-200) 200 unit/mL pen syringe Tresiba FlexTouch U-200 insulin 200 unit/mL (3 mL) subcutaneous pen Active insulin glargine (Lantus Solostar U-100 Insulin) 100 unit/mL pen syringe Lantus Solostar U-100 Insulin 100 unit/mL (3 mL) subcutaneous pen inject 40 units under the skin daily at BEDTIME Active pravastatin (PRAVACHOL) 80 mg tablet pravastatin 80 mg tablet TAKE 1 TABLET DAILY AT BEDTIME Active metFORMIN (GLUCOPHAGE) 1,000 mg tablet metformin 1,000 mg tablet TAKE 1 TABLET TWICE A DAY WITH MEALS 1 Active Cortney Pen Needle 32 gauge x 5/32 Needle 2 Active lisinopriL (PRINIVIL) 10 mg tablet lisinopril 10 mg tablet TAKE 1 TABLET DAILY IN THE MORNING 1 Active multivitamin (DAILY-NITA) tablet Take 1 Tablet by mouth daily. Active vitamin E 200 unit Capsule Take 200 Units by mouth daily. Active Active Problems Problem Noted Date Diagnosed Date Leukocytosis (leucocytosis) 02/20/2022 Family History Medical History Relation Name Comments Heart Disease Brother 1 Heart Disease Brother 2 Cancer Sister 1 Heart Disease Sister 2 Relation Name Status Comments Brother 1 Brother 2 Father Mother Sister 1 Alive Sister 2 Social History Tobacco Use Types Packs/Day Years Used Date Smoking Tobacco: Never Tobacco Cessation:Counseling Given: Not Answered Alcohol Use Standard Drinks/Week Comments Never 0 (1 standard drink = 0.6 oz pur e alcohol) Comments Unknown Sex and Gender Information Value Date Recorded Sex Assigned at Not on file Legal Sex Female 3:37 PM CDT Gender Identity Not on file Sexual Orientation Not on file Last Filed Vital Signs Vital Sign Reading Time Taken Comments Blood Pressure 127/55 09/06/2022 10:14 AM FACTORY SUPERVISOR Pulse 86 09/06/2022 10:14 AM FACTORY SUPERVISOR Temperature 36.7 C (98.1 F) 09/06/2022 10:14 AM FACTORY SUPERVISOR Respiratory Rate 20 09/06/2022 10:1 4 AM FACTORY SUPERVISOR Oxygen Saturation 97% 09/06/2022 10: 14 AM FACTORY SUPERVISOR Inhaled Oxygen Concentration - - Weight 83.4 kg (183 lb 14.4 oz) 023 10:14 AM FACTORY SUPERVISOR Height 167.6 cm (5' 6 ) 03/06/2022 9:30 AM CDT Body Mass Index 29.68 03/06/2022 9:30 AM CDT Plan of Treatment Health Maintenance Due Date Last Done Comments DIABETES ANNUAL FOOT EXAM 1962 DIABETES ANNUAL RETINAL EXAM 1962 DIABETES MICROALBUMIN ANNUAL SCREEN 1962 LDL CHOLESTEROL ANNUAL 1962 PNEUMOCOCCAL VACCINE 50+ YEARS (1 of 2 - PCV) 10/29/18 64 ZOSTER VACCINE (1 of 2) 1994 OSTEOPOROSIS SCREENING 2009 RSV VACCINE (60+ or ) (1 - 1-dose 75+ series) 10/30/2019 DIABETES HBA1C Q 6 MONTHS 01/23/2021 07/26/2020 INFLUENZA VACCINE (#1) 2024 DTAP/TDAP/TD VACCINES (2 - Td or Tdap) 01/06/2030 Insurance MEDICARE PART A AND B [facility] Care Teams Director Business Integration Relationship Specialty Start Date End Date Abraham Crowe DO [address] [place] [address] PCP - General Family Practice 02/20/22
--- OUTSIDE RECORDS SUMMARY | 2024-09-21 08:12 | XMS_ITS | Patient Health Record ---
Author Organization [facility] Address [address] [place], [place] [id number] Care Team Providers Care Can Worker Name Role Phone NILO GLASS Unavailable [phone] Riddhi Salazar Unavailable Unavailable Allergies Allergen (clinical drug ingredient) Drug/Non Drug Allergy documented on EMR Reaction Allergy Type Onset Date Status Latex Latex Unknown Allergy 05/25/2022 active Reason For Referral No Information Medications Medication SIG (Take, Route, Frequency, Duration) Notes Start Date End Date Status Meloxicam 7.5 MG Oral for 30 Days Active Lisinopril 10 MG Oral for 90 Days Active metFORMIN HCl 1000 MG Oral for 90 Days Active BD Pen Needle [place] 2nd Gen 32G X 4 MM for 90 Days Active Pravastatin Sodium 80 MG Oral for 90 Days Active Lantus SoloStar 100 UNIT/ML Subcutaneous for 100 Days Ac tive Glimepiride 1 MG Oral for 90 Days Active Plan Of Treatment No Information Insurance Providers Payer Name Payer Address Payer Phone Subscriber Number Group Number Insured Name Patient Relationship to Insured Coverage Start Date Coverage End Date Medicare Part [place] [address] [place] [address] [id number] HODAN JARRETT Self - patient is the insured [facility] ([facility]) ATTN CLAIMS [address] [place] [address] [id number] HODAN JARRETT Self - patient is the insured
--- OUTSIDE RECORDS SUMMARY | 2024-09-21 08:12 | XMS_ITS | Data Portability ---
Author Organization [facility] [employer], Main Office Address [address] [place] [address] Care Team Providers Care Foundation Drill Operator Name Role Phone NO, PCP Referring Provider Unavailable Assessment No assessment recorded. Plan of Treatment Reminders Order Date Submit Date Provider Last Modified By Organization Details Last Modified Time Details Appointments None recorded. Lab None recorded. Referral None recorded. Procedures None recorded. Surgeries None recorded. Imaging None recorded. Medication Orders True Metrix Glucose Test Strip 023 023 [id number] [facility], [address], [place], [id number], 3 12:22:52 Patient TargetsNo targets recorded. Patient InstructionsNo instructions recorded. Reason for Referral None Reported. Results Created Date Observation Date Name Description Value Unit Range Abnormal Flag Note LastModifiedBy Organization Detail LastModifiedTime 02/16/20 21 XR, knee No observ ation record ed. [id number] [facility] [place] [address], [place], [address], 09/12/2022 04:59:05 Result Notes None recorded. Problems Name Problem SNOMED Code Status Onset Date Resolution Date Notes Provider Name and Address Organization Details Recorded Time Well controlled type 2 diabetes mellitus 242591323 Active 2022 Not Available [facility] 3 03:17:05 Dyslipidemia 419913051 Active 2022 Not Available [facility] 3 03:17:05 Hypertensive disorder 60930872 Active 2022 Not Available [facility] 3 03:17:05 Uncontrolled type 2 diabetes mellitus 129220063 Active 2022 Not Available [facility] 03:17:05 Problem Notes None recorded. Procedures Surgical History Date Name Laterality Status Provider Name and Address Organization Details Recorded Time lumpectomy of the breast and lymph node dissecti completed Not Available [facility] 09/12/2022 04:42:13 Knee Replacement completed Not Available [facility] 09/12/2022 04:42:13 Imaging Results Imaging Date Name Status LastModified by Organiz ation Details LastModified Time 02/15/2021 XR, knee completed [id number] [facility] [place] [address], [place], [address], 09/12/2022 04:59:05 Procedure Notes None recorded. Medical Equipment None Reported. Allergies Allergen ID Allergen Name Allergen Category Reaction Reaction Severity Criticality Documentation Date Start Date Code Code System Note Provider Name and Address Organization Details Recorded Time 7246 latex environme nt,medica tion Not available Not available Not available 09/12/2022 48432 91 RxNorm Not Available [facility] 04:58:37 Medications Name Sig Start Date Stop Date Status Note LastModified by Organization Details LastModified Time meclizine 12.5 mg tablet active Not Available Not Available Not Available glimepiri de 1 mg tablet active Not Available Not Available Not Available meloxicam 7.5 mg tablet active Not Available Not Available Not Available ofloxacin 0.3 % ear drops active Not Available Not Available Not Available pravastat in 80 mg tablet TAKE 1 TABLET DAILY AT BEDTIME active Not Available Not Available No t Available pravastat in 10 mg tablet 12/27 completed Not Available Not Available Not Available betametha sone valerate 0.1 % topical cream active Not Available Not Available Not Available benzonata te 100 mg capsule 11/08 completed Not Available Not Available Not Available metformin 1,000 mg tablet TAKE 1 TABLET TWICE A DAY WITH MEALS 2022 active Not Available Not Available Not Avai lable nystatin 100,000 unit/gram topical cream 01/25 completed Not Available Not Available Not Available lisinopri l 10 mg tablet TAKE 1 TABLET DAILY IN THE MORNING 2022 active Not Available Not Available Not Mick hancock clotrimaz ole 1 % topical solution 01/25 completed Not Available Not Available Not Available Novolog U-100 Insulin aspart 100 unit/mL subcutane ous solution 11/08 completed Not Available Not Available Not Available ondansetr on 4 mg disintegr ating tablet active Not Available Not Available Not Available fluticaso ne propionat e 50 mcg/actua tion nasal spray,tra pension 02/15 completed Not Available Not Available Not Available metformin ER 500 mg tablet,ex tended release 24 hr 11/08 completed Not Available Not Available Not Available loratadin e 10 mg tablet active Not Available Not Available Not Available amoxicill in 875 mg-potass ium clavulana te 125 mg tablet 11/08 completed Not Available Not Available Not Available BD Ultra-Fin e Mini Pen Needle 31 gauge x 3/16 active Not Available Not Available Not Available Vitamin C 500mg 1x daily active Not Available Not Available No t Available aspirin 2020 active Not Available Not Available Not Avbertin lable Cinnamon 500 mg 1x daily active Not Available Not Available No t Available Lantus Solostar U-100 Insulin 100 unit/mL (3 mL) subcutane ous pen 2022 active Not Available Not Available Not Mick hancock BD Ultra-Fin e Cortney Pen Needle 32 gauge x 5/32 Use as directed . Inject once daily at bedtime. active Not Available Not Available No t Available lutein 20 mg tablet Take by oral route. active Not Available Not Available No t Available BD Insulin Syringe Ultra-Fin e 1 mL 31 gauge x 5/16 active Not Available Not Available Not Available Victoza 3-Brandt 0.6 mg/0.1 mL (18 mg/3 mL) subcutane ous pen injector active Not Available Not Available Not Available True Metrix Glucose Test Strip USE FOR TESTING THREE TIMES A DAY BEFORE MEALS 2022 active Not Available Not Available Not Mick hancock Trulicity 1.5 mg/0.5 mL subcutane ous pen injector Inject 1.5 mg every week by subcutan eous route in the morning for 90 days. 01/25 completed inject 0.75 mg SQ once weekly x 4 weeks then increase to 1.5 mg SQ weekly thereaft er Not Available Not Available Not Available Trulicity 0.75 mg/0.5 mL subcutane ous pen injector Inject 0.75 mg every week by subcutan eous route in the morning for 30 days. active inject 0.75 mg SQ once weekly x 4 weeks then increase to 1.5 mg SQ weekly thereaft er Not Available Not Available Not Available Tresiba FlexTouch U-200 insulin 200 unit/mL (3 mL) subcutane ous pen Inject 14 units every day by subcutan eous route at bedtime for 30 days. 01/25 completed Not Available Not Available Not Available Bydureon BCise 2 mg/0.85 mL subcutane ous auto-inje ctor Inject 2 mg every week by subcutan eous route in the morning for 30 days. active Not Available Not Available No t Available Vitals Date Recorded Body mass index (BMI) Body height Oxygen saturation Oxygen saturation in Arterial blood by Pulse oximetry Heart rate Body temperature Body weight Systolic blood pressure Diastolic blood pressure Provider Name and Address Organization Details Last Updated DateTime 1 28.6 kg/m2 165.1 cm 96 % 96 % 90 /min 99.2 [degF] 44753.8 9 g 120 mm[Hg] 60 mm[Hg] Not Available [facility] 3 04:45:02 Date Recorded Body height Provider Name an d Address Organization Details Last Updated DateTime 02/15/2021 165.1 cm Not Available [facility] 3 04:45:03 Date Recorded Body weight Heart rate Body temperature Systolic blood pressure Diastolic blood pressure Provider Name and Address Organization Details Last Updated DateTime 01/25/2023 54200.2 9 g 82 /min 97.6 [degF] 153 mm[Hg] 72 mm[Hg] JAMESON Lewis [place] - [facility] [place] [facility] 3 11:03:27 Social History Question Answer Notes LastModified by Organizat ion Details LastModified Time Tobacco Smoking Status Never Smoker Not Available [facility] 09/12/2022 04:27:31 What Is Your Level Of Alcohol Consumption? None [id number] Information not available 09/12/2022 What Is Your Level Of Caffeine Consumption? Moderate [id number] Information not available 09/12/2022 How Much Tobacco Do You Chew? None [id number] Information not available 09/12/2022 In The 14 Days Before Symptom Onset, Have You Had Close Contact With A Laboratory-confir med COVID-19 While That Case Was Ill? No [id number] Information not available 09/12/2022 In The 14 Days Before Symptom Onset, Have You Had Close Contact With A Person Who Is Under Investigation For COVID-19 While That Person Was Ill? No [id number] Information not available 09/12/2022 Which Illicit Or Recreational Drugs Have You Used? None [id number] Information not available 09/12/2022 Do You Or Have You Ever Used E-cigarettes Or Vape? Never Used Electronic Cigarettes [id number] Information not available 09/12/2022 What Is Your Occupation? Retired [id number] Information not available 09/12/2022 Do You Or Have You Ever Used Smokeless Tobacco? Never Used Smokeless Tobacco [id number] Information not available 09/12/2022 Sex: Unknown Functional Status None recorded. Mental Status None recorded. Family History Relationship Description Onset Age of this Age Resolved Age Notes LastModified by Organization Details LastModified Time Maternal Aunt Diabetes mellitus [id number] Not available 09/12/2022 04:42:17 Mother Diabetes mellitus [id number] Not available 09/12/2022 04:42:17 Sister Malignant tumor of breast 2 sister [id number] Not available 09/12/2022 04:42:18 Brother Myocardial infarction 2 brothe rs [id number] Not available 09/12/2022 04:42:18 Medical History Condition Response BLINDNESS N KIDNEY STONES N CARPAL TUNNEL SYNDROME N MRSA N LUNG DISEASE/DISORDER N HISTORY OF DRUG ABUSE N RADIATION / CHEMOTHERAPY N COPD N SPORTS INJURY N ANKLE PAIN N BLOOD DISEASES N SURGERY Y SCHIZOPHRENIA N SHINGLES N BOWEL PROBLEMS N SHOULDER PAIN N DEPRESSION (INCLUDING POST ) N STROKE/TIA N KNEE PAIN N ULCERS N BENIGN PROSTATIC HYPERPLASIA N OBESITY N GERD/NAUSEA N ANEURYSM N URINARY/BLADDER/KIDNEY PROBLEMS N CORONARY ARTERY DISEASE (CAD) N ADDICTION CONCERNS N USE OF BLOOD THINNERS N SKIN PROBLEMS N EMPHYSEMA N MUSCLE,JOINT OR BONE PROBLEMS N DVT N STOMACH ULCERS N BLOOD CLOTS N USE OF NSAIDS N CONCUSSION OR SPINAL TRAUMA N NEUROPATHY N AIDS/HIV N FRACTURES N ELBOW PAIN N HYPERTENSION N TOURETTE'S N ANXIETY DISORDER N Metal allergy N BLOOD TRANSFUSION N ANEMIA/BLOOD DISORDER N BIPOLAR DISORDER N BRONCHITIS N OSTEOARTHRITIS N TUBERCULOSIS N FOOT PROBLEM N HEART VALVE DISORDERS N ALLERGIES/HAYFEVER N SOFT TISSUE INJURY N INFECTIOUS DISEASE N HEART ARRHYTHMIA N INSOMNIA N RHEUMATOID ARTHRITIS N HIGH CHOLESTEROL / HYPERLIPIDEMIA N EDEMA N CHRONIC PAIN SYNDROME N CAROTID BLOCKAGE N BACK / NECK PROBLEMS N HAVE YOU BEEN HOSPITALIZED OR SEEN IN [facility] ER IN THE PAST YEAR ? N BURSITIS N HERNIATED DISC N DIALYSIS N FIBROMYALGIA N OSTEOPOROSIS N ARTHRITIS N NO SIGNIFICANT PAST MEDICAL HISTORY N PERIPHERAL NEUROPATHY N DIABETES, TYPE Y HEARTBURN / REFLUX N HEPATITIS / LIVER DISEASE N GOUT N SLEEP DISORDER N ALZHEIMER'S DISEASE N HERPES N SEIZURES/EPILEPSY N HEADACHES/MIGRAINES N VASCULAR DISEASE N HIP PAIN N Blood Disorder N DIZZINESS N HEAD TRAUMA OR INJURY N HEART DISEASE/HEART PROBLEMS N MULTIPLE SCLEROSIS N CARDIAC ARRHYTHMIA N CANCER: SPECIFY Y ANESTHESIA COMPLICATIONS N ATRIAL FIBRILLATION N AUTOIMMUNE DISEASE N Gynecological HistoryNo gynecological history recorded. Obstetrics History GPAL:G 0 P 0 0 0 0 Past Encounters Encounter ID Performer Location Encounter Start Date Encounter Closed Date Diagnosis/Indication Diagnosis SNOMED-CT Code Diagnosis ICD10 Code Diagnosis Note [id number] [facility] [place] [address] [place] [address] 11/08/2020 00:00:00 11/08/2020 12:44:53 [id number] [facility] [place] [address] [place] [address] 12/27/2020 00:00:00 12/27/2020 14:54:25 [id number] [facility] [place] [address] [place] [address] 02/15/2021 00:00:00 02/15/2021 15:46:26 [id number] Corine Bonner MD [facility] [place] [address] [place] [address] 01/25/2023 10:49:45 01/25/2023 11:40:24 Uncontrolled type 2 diabetes mellitus 915113250 E11.65 A1C of 8.4% up from 7% range- last seen in 06/04- no longer on tresiba- recommende d patient consider splitting her lantus at 25 units twice daily and titrate at 2 units every 3 days to maintain fasting glucose of 90-130 mg/dL. Continue on glimepirid e scale with breakfast only along with metformin with meals. Refill test strips per patient request. Spent up to 20 minutes preparing to see the patient (eg, review of tests), obtaining and/or reviewing separately obtained history, performing a medically appropriat e examinatio n and evaluation , counseling and educating the patient, ordering medication s, tests, along with documentin g clinical informatio n in the electronic health record, independen tly interpreti ng results and communicat ing results to the patient. Patient can be followed by PCP - she/he is aware of my resignatio n and last day of April 26. If needed his/her PCP can refer patient to another endocrinol ogist in the area. All questions /concerns answered and refills necessary at visit today. Health Concerns Section Related Observation LastModified by Organization Detai ls LastModified Time None Recorded Concern Status LastModified by Organization Details LastModified Time None Recorded Advance Directives Directive None Recorded Payers Encounter Date Sequence Insurance Name Policy Number Policy Kelly Covered Member ID Kelly Member ID Guarantor Name 01/25/2023 1 [place] Gisele L Greeling [id number] Gisele L Greeling 01/25/2023 2 [place]) [id number] Gisele L Greeling [id number] Gisele L Greeling Notes Date Note Type Note Provider Name and Address Organization Details Recorded Time 01/25/2023 text/html 77 yo female com es in to re-establish care in management of uncontrolled type 2 DM (A1C of 8.4%) last seen in December 2020 at that time we continued tresiba 14 units at bedtime and patient is aware she can increase or decrease by 2 units every 4 days until fasting glucose is running 90-120 mg/dL consistently.She was aware / advised at that time to stop glimepiride with dinner due to some early intervention specialist lows and continue scale with breakfast only-continued on metformin and continued on trulicity 1.5 mg SQ weekly as she was tolerating well. we continued pravastatin. Insurance would not cover tresiba- patient has lantus taking 50 units at bedtime. She is still taking glimepiride with breakfast only along with metformin with meals. She is no longer taking the trulicity. Sugars running 106 mg/dl up to 130 mg/dLpredinner 159 mg/dL up to 180 mg/dL labs from 12/12/22:microalbumi n 18.1 ug/mgTSH of 1.68 uIU/mlFT4 of 0.87 ng/dLa1c 8.4%148/180/53/59lf t normalglucose 199 mg/dLCr 1.02 mg/dL Corine Bonner MD [address] [facility] [facility] [address], [place], [address], [facility] 01/25/2023 13:45:24 OBGyn Episode No OBEpisode recorded.
--- OUTSIDE RECORDS SUMMARY | 2024-09-21 08:12 | XMS_ITS ---
Author Organization [facility] Address [address] [place], [place] [id number] Care Team Providers Care Engineering Mgr Name Role Phone NILO GLASS Unavailable [phone] Riddhi Salazar Unavailable Unavailable BETTY GALE Unavailable [phone] REASON FOR VISIT other obligations Encounters Encounter Location Date Provider Diagnosis [facility] [place], [place] [address] [place], [place] [id number] 06/20/2023 BETTY GALE Plan Of Treatment No Information Progress Notes * HODAN JARRETTDOB: [birth year] (78 yo F)Acc No.[id number]:06/20/2023 Patient: HODAN WILSON Provider: Ludmila GALE :1945 A ge:77 Y S ex:Female Date:06/20/2023 Address:[address] [place], [place] [id number] Subjective: * Chief Complaints: * 1 . Other obligations. * Medical History: Objective: * Vitals: Assessment: Plan: * Treatment: * Billing Information: * Visit Code: * Procedure Codes: * Electronic signature of LESLIE GALE DPM on 09/21/2024 at 08:11 AM CDT Sign off status: Pending * Provider: Ludimla GALE Date: 1 08/21/2022 Generated for Tori ureña/Norma/David on: 0 09/21/2024 08:11 AM CDT
--- OUTSIDE RECORDS SUMMARY | 2024-09-21 08:12 | XMS_ITS | Clinical Summary ---
Author Organization [facility] Address Formerly [facility], [id number] [place] [address] Care Team Providers Care Auto Wrecker Name Role Phone Riddhi Salazar CRACK OFF PERSON Primary Care Provider [phone] Allergies Active Allergy Reactions Criticality Noted Date Comments Latex Rash Low 05/04/2016 Medications aspirin (ASPIRIN LOW DOSE) 81 MG tablet Take 1 tablet by mouth daily. Active Cinnamon 500 MG capsule Take by mouth daily. Active [place]-3 Fatty Acids (FISH OIL CONCENTRATE) 1000 MG Cap Take 1 capsule by mouth daily. Active meclizine 12.5 MG tablet Take 12.5 mg by mouth 4 (four) times daily. 0 Active multivitamin tablet Take 1 tablet by mouth daily. Active lisinopril 10 MG tabletIndicatio ns:Type 2 diabetes mellitus without complication, with long-term current use of insulin ([facility] HHS/HCC) Take 1 tablet (10 mg total) by mouth daily. 90 tablet 3 1 Active metFORMIN 1000 MG tabletIndicatio ns:Type 2 diabetes mellitus without complication, with long-term current use of insulin ([facility] HHS/HCC) Take 1 tablet (1,000 mg total) by mouth 2 (two) times daily. 180 tablet 3 1 Active Glucose Blood (TRUE METRIX BLOOD GLUCOSE TEST) test stripIndication s:Type 2 diabetes mellitus without complication, with long-term current use of insulin (CMS/HCC HHS/HCC) USE TO TEST BLOOD SUGAR TWICE A DAY 200 strip 2 1 Active Insulin Pen Needle (B-D UF III MINI PEN NEEDLES) 31G X 5 MM MiscIndications :Type 2 diabetes mellitus without complication, with long-term current use of insulin ([facility]) Use for injections twice a day 100 Container 11 1 Active Active Problems Problem Noted Date Diagnosed Date Fungal infection of toenail 07/31/2016 Type 2 diabetes mellitus wit hout complication, with long-term current use of insulin ([facility]) 05/04/2016 Dyslipidemia 05/04/2016 Essential hypertension 05/04/2016 Immunizations Name Administration Dates Next Due Influenza Adult (Generic) 04/10/2017 Tdap (Boostrix) 01/07/2020 Family History Medical History Relation Comments Heart Attack Brother type 1 diabetes Grandchild Diabetes Mother Myxoma Sister Relation Status Comments Brother (Age 42) Father Grandchild Mother Sister Alive Social History Tobacco Use Types Packs/Day Years Used Date Smoking Tobacco: Never Smokeless Tobacco: Never Alcohol Use Standard Drinks/Week Comments Never 0 (1 standard drink = 0.6 oz pur e alcohol) AUDIT-C Answer Date Recorded Q1: How often do you have a drink containing alc ohol? Never 02/22/2020 Average Number of Drinks Not on file 020 Frequency of Binge Drinking Not on file 02/12 PHQ-2 Answer Date Recorded PHQ-2 Score - If the patient scores above 3, please move on to questions 3-9 1 07/26/2020 Comments Unknown Sex and Gender Information Value Date Recorded Sex Assigned at Not on file Legal Sex Female 7:40 PM CDT Gender Identity Not on file Sexual Orientation Not on file Last Filed Vital Signs Vital Sign Reading Time Taken Comments Blood Pressure 118/68 07/26/2020 9:49 AM IRONWORKER Pulse 77 07/26/2020 9:49 AM IRONWORKER Temperature 36.2 C (97.2 F) 07/26/2020 9:49 AM IRONWORKER Respiratory Rate 20 07/26/2020 9:49 AM IRONWORKER Oxygen Saturation 97% 07/26/2020 9:49 AM IRONWORKER Inhaled Oxygen Concentration - - Weight 76.1 kg (167 lb 12.8 oz) 07/26/2020 9:49 AM IRONWORKER Height 165.1 cm (5' 5 ) 07/26/2020 9:49 AM IRONWORKER Body Mass Index 27.92 07/26/2020 9:49 AM IRONWORKER Plan of Treatment Health Maintenance Due Date Last Done Comments Kidney Health Evaluation 1945 Pneumococcal Vaccine: 65+ Years (1 of 2 - PCV) 1950 Diabetes: Retinopathy Eye Exam 1962 Hepatitis C 1962 Zoster Vaccines (1 of 2) 1994 Annual Medicare Wellness Visit 2009 Dexa Scan (General) 2009 Lipid Panel 09/06/2017 09/06/2016, 09/06/2016 RSV Immunization or 60+ Years (1 - 1-dose 75+ series) 10/30/2019 Hemoglobin A1C 01/23/2021 07/26/2020, 02/12, 08/18/2019, Additional history exists COVID-19 Vaccine ( - 2023- season) 2024 Influenza Adult (#1) 2024 04/10/2017 DTaP, Tdap and Td Vaccines (2 - Td or Tdap) 01/06/2030 01/07/2020 Meningococcal B Vaccine Aged Out No l onger eligible based on patient's age to complete this topic Meningococcal Vaccine Aged Out No yvon akbar eligible based on patient's age to complete this topic RSV Immunizations Under 20 Months Aged Out No longer eligible based on patient's age to complete this topic Procedures Procedure Name Priority Date/Time Associated Diagnosis Comments HEMOGLOBIN, GLYCOSYLATED Routine 07/26/2020 9:55 AM IRONWORKER Type 2 diabetes mellitus without complication, with long-term current use of insulin LIPID PANEL TIMED 09/06/2016 7:41 PM IRONWORKER from Last 3 Months or Most Recently Relevant to Health Maintenance Results * HEMOGLOBIN, GLYCOSYLATED (07/26/2020 9:55 AM IRONWORKER) HGB A1C 6.3 % [address] [place] 07/26/2020 9:55 AM IRONWORKER us Edward Gutierrez MD LABORATORY Final Result [address] [place] [address] [place] [address], [place] [phone] * (ABNORMAL) LIPID PANEL (09/06/2016 7:41 PM IRONWORKER) CHOLESTEROL 151 0 - 200 MG/DL 09/06/2016 7:[address] [facility] Comment:DESIRABLE: <200 TRIGLYCERIDES 298(H) 0 - 149 MG/DL 09/06/2016 7:[address] [facility] Comment:200-499 HIGH HDL 48 >39 MG/DL 09/06/2016 7:[address] [facility] Comment:NORMAL: 40-60 DIRECT LDL 62 0 - 129 MG/DL 09/06/2016 7:[address] [facility] Comment:<100 OPTIMAL 09/06/2016 7:0 7 PM IRONWORKER us Generic Conversion Md [facility] Final R esult [facility] [address] [place] [address], [id number] from Last 3 Months or Most Recently Relevant to Health Maintenance Insurance MEDICARE [facility] Care Teams Auto Wrecker Relationship Specialty Start Date End Date Riddhi Salazar FNP [address] [place] [address] PCP - General NURSE PRACTITIONER 07/26/20
== END 2024-09-21 08:02 | disposition home or self-care (01) ==
LOC: CHSIMG 08:03
PROVIDERS: PCP Nurse Practitioner Family; Visit Provider Orthopaedic Surgery
DX: M25.562 Pain in left knee (principal); M17.12 Unilateral primary osteoarthritis, left knee
CPT/HCPCS: 73564

== ENCOUNTER 2025-03-01 13:19 | Outpatient (CLI) | payer MEDICARE, BC, SELFPAY ==
[2025-03-01 13:38] LABS: Hematocrit 39.9 % (35.0-42.0); Hemoglobin 12.9 g/dL (11.7-13.8); Immature Granulocyte Percent A 0.6 % (0.0-0.0); Lymphocytes Absolute Auto 1.44 K/mm3 (1.10-4.50); Mean Corpuscular HGB Conc 32.3 g/dL (32-36); Mean Corpuscular Hemoglobin 29.9 pg (27.0-31.0); Mean Corpuscular Volume 92.6 fL (78.0-102.0); Nucleated Red Blood Cells Absolute Auto 0.00 K/mm3 (0.00-0.00); Nucleated Red Blood Cells Perc 0.0 % (0-0.0); Platelet Count Result 309 K/mm3 (150-420); Red Blood Count 4.31 M/mm3 (4.20-5.40); White Blood Count 11.0 K/mm3 (4.8-10.8)
[2025-03-01 13:42] LABS: Add Urine Microscopic? YES; Appearance Urine Sl Cloudy (Clear); Glucose Urine UA Negative (Negative); Leukocyte Esterase Ur 2+ LEU/UL (Negative); Nitrate Urine Negative (Negative); Specific Grav Ur 1.010 (1.010-1.020)
[2025-03-01 13:52] LABS: MALB Creatinine Ratio 136.9 mg/g (0-30)
[2025-03-01 14:10] LABS: Alanine Aminotransferase 25 U/L (6-35); Albumin Level 4.6 g/dL (3.5-5.1); Alkaline Phosphatase 70 U/L (38-126); Anion Gap 10 mmol/L (4-12); Aspartate Amino Transferase 24 U/L (14-36); Bilirubin,Total 0.4 mg/dL (0.2-1.3); Blood Urea Nitrogen 17 mg/dL (7-17); Calcium 10.4 mg/dL (8.4-10.2); Carbon Dioxide 25 mmol/L (22-30); Chloride 104 mmol/L (98-107); Cholesterol 164 mg/dL (0-200); Estimated Glomerular Filt Rate > 60; Glucose 150 mg/dL (65-110); HDL Direct 67 mg/dL; Osmolality Calculated 292 mOsm/kg (285-295); Potassium 5.1 mmol/L (3.4-5.0); Sodium 139 mmol/L (137-145); Total Protein 7.1 g/dL (6.3-8.2)
[2025-03-01 14:12] LABS: Triglycerides 249 mg/dL (<150)
--- OUTSIDE RECORDS SUMMARY | 2025-03-01 14:26 | XMS_ITS | Clinical Summary ---
Author Organization [facility] [place] [facility] Address [address] [place] [address] Care Team Providers Care Chief Risk Officer Name Role Phone Abraham Crowe DO Primary Care Provider Allergies Active Allergy Reactions Criticality Noted Date [...] Comments Blood Pressure 127/55 09/06/2022 10:14 AM LINE INSPECTOR Pulse 86 09/06/2022 10:14 AM LINE INSPECTOR Temperature 36.7 C (98.1 F) 09/06/2022 10:14 AM LINE INSPECTOR Respiratory Rate 20 09/06/2022 10:1 4 AM LINE INSPECTOR Oxygen Saturation 97% 09/06/2022 10: 14 AM LINE INSPECTOR Inhaled Oxygen Concentration - - Weight 83.4 kg (183 lb 14.4 oz) 023 10:14 AM LINE INSPECTOR Height 167.6 cm (5' 6) 03/06/2022 9:30 AM CDT Body Mass Index [...] 6 MONTHS 01/23/2021 07/26/2020 INFLUENZA VACCINE (#1) 2025 DTAP/TDAP/TD VACCINES (2 - Td or Tdap) 01/06/2030 Insurance MEDICARE PART A AND B [facility] Care Teams Chief Risk Officer Relationship Specialty Start Date End Date Abraham Crowe DO [address] [place] [address] PCP - General Family Practice 02/20/22
[2025-03-01 14:40] LABS: Thyroid Stimulating Hormone 1.280 uIU/mL (0.465-4.680)
[2025-03-01 15:00] LABS: Vitamin B12 466.0 pg/mL (239-931)
== END 2025-03-01 13:20 | disposition home or self-care (01) ==
LOC: CHSLAB 13:22
PROVIDERS: Internal Medicine Endocrinology, Diabetes & Metabolism; PCP Nurse Practitioner Family; Visit Provider Nurse Practitioner Family
DX: E55.9 Vitamin D deficiency, unspecified (principal); E11.69 Type 2 diabetes mellitus with other specified complication; E78.00 Pure hypercholesterolemia, unspecified; E11.65 Type 2 diabetes mellitus with hyperglycemia; Z79.4 Long term (current) use of insulin; I10 Essential (primary) hypertension; E11.59 Type 2 diabetes mellitus with other circulatory complications; Z87.898 Personal history of other specified conditions
CPT/HCPCS: 36415; 80053; 80061; 81001; 82043; 82306; 82607; 84443; 85025; 87086

== ENCOUNTER 2025-03-31 12:25 | Outpatient (CLI) | payer MEDICARE, BC, SELFPAY ==
--- NOTE | ~2025-03-31 | DEXA_ITS ---
Bone Density Report Name: HODAN JARRETT Age: 79 Sex: Female Ethnicity: White Date of : 1945 Indication: screening for osteoporosis; height loss; cancer; hysterectomy; Referring Provider: Riddhi Salazar Study: Bone densitometry was performed. Exam Date: March 31, 2025 Accession number: [id number] Bone Density: Region BMD T-score Z-score Classification AP Spine(L1-L4) 1.348 2.7 5.4 Normal Femoral Neck (Left) 1.097 2.2 4.6 Normal Total Hip (Left) 1.366 3.5 5.6 Normal Femoral Neck (Right) 1.056 1.9 4.2 Normal Total Hip (Right) 1.373 3.5 5.6 Normal Femoral Neck Mean 1.077 2.1 4.4 Normal Total Hip Mean 1.369 3.5 5.6 Normal World Health Organization criteria for BMD impression classify patients as: Normal (T-score at or above -1.0), Osteopenia (T-score between -1.0 and -2.5), or Osteoporosis (T-score at or below -2.5). 10-year Fracture Risk: FRAX not reported because: Premenopausal woman All T-scores for Spine Total, Hip Total, Femoral Neck at or above -1.0 Previous Exams: Region Exam Age BMD T-score BMD Change BMD Change Date g/cm2 vs Baseline vs Previous AP Spine (L1-L4) 03/31/2025 79 1.348 2.7 0.071 (5.6%)# 0.071 (5.6%)# 03/14/2023 77 1.277 2.1 Total Hip(Left) 03/31/2025 79 1.366 3.5 0.032 (2.4%)# 0.032 (2.4%)# 03/14/2023 77 1.334 3.2 Total Hip(Right) 03/31/2025 79 1.373 3.5 0.104 (8.2%)# 0.104 (8.2%)# 03/14/2023 77 1.268 2.7 *Denotes significance at 95% confidence level, LSC for AP Spine = 0.022 g/cm2, LSC for Total Hip = 0.027 g/cm2 # Denotes dissimilar scan types or analysis methods Clinical Information Provided by Patient: Has used the following medications: Vitamin D, multivitamin Has the following medical conditions: Cancer, Hysterectomy Patient maximum height was 65 Menopause Age: 49 No regular weight bearing exercise Onset of menses at age 15 Premenopausal Impression: The patient's bone mass is within expected range for age, gender and ethnicity. No significant bone loss was observed. Discussion: BONE DENSITY IS WITHIN EXPECTED LIMITS FOR AGE, SEX AND RACE. Bone density is within expected limits for age, sex and race at all sites measured. The patient should follow a healthful lifestyle (good nutrition with adequate calcium and vitamin D, and appropriate weight-bearing exercise). Follow-Up: Consider repeating this study in 5 years or sooner if there is some new clinical indication. Reported by: JUAN MANUEL on 03/31/2025 12:49:00 PM. Reviewed, dictated and finalized at location A.
--- OUTSIDE RECORDS SUMMARY | 2025-03-31 12:36 | XMS_ITS | Clinical Summary ---
Author Organization [facility] Address [facility] [place] [address] Care Team Providers Care Makeup Artistry Instructor Name Role Phone Riddhi Salazar TAIL EDGER Primary Care Provider [phone] Allergies Active Allergy Reactions Criticality Noted Date Comments Latex Rash Low 05/04/2016 Medications aspirin (ASPIRIN LOW DOSE) 81 MG tablet Take 1 tablet by mouth daily. Active Cinnamon 500 MG capsule Take by mouth daily. Active [place]-3 Fatty Acids (FISH OIL CONCENTRATE) 1000 MG Cap Take 1 capsule by mouth daily. Active meclizine 12.5 MG tablet Take 12.5 mg by mouth 4 (four) times daily. 0 Active multivitamin tablet Take 1 tablet by mouth daily. Active lisinopril 10 MG tabletIndicatio ns:Type 2 diabetes mellitus without complication, with long-term current use of insulin ([facility] HHS/HCC) Take 1 tablet (10 mg total) by mouth daily. 90 tablet 3 1 Active metFORMIN 1000 MG tabletIndicatio ns:Type 2 diabetes mellitus without complication, with long-term current use of insulin ([facility] HHS/HCC) Take 1 tablet (1,000 mg total) [...] complication, with long-term current use of insulin ([facility]) Use for injections twice a day 100 Container 11 1 Active Active Problems Problem Noted Date Diagnosed Date Fungal infection of toenail 07/31/2016 Type 2 diabetes mellitus wit hout complication, with long-term current use of insulin ([facility]) 05/04/2016 Dyslipidemia 05/04/2016 Essential hypertension 05/04/2016 Immunizations Immunization Administration Dates Next Due Influenza Adult (Generic) [...] Comments Blood Pressure 118/68 07/26/2020 9:49 AM MANAGER SECURITY AND SAFETY Pulse 77 07/26/2020 9:49 AM MANAGER SECURITY AND SAFETY Temperature 36.2 C (97.2 F) 07/26/2020 9:49 AM MANAGER SECURITY AND SAFETY Respiratory Rate 20 07/26/2020 9:49 AM MANAGER SECURITY AND SAFETY Oxygen Saturation 97% 07/26/2020 9:49 AM MANAGER SECURITY AND SAFETY Inhaled Oxygen Concentration - - Weight 76.1 kg (167 lb 12.8 oz) 07/26/2020 9:49 AM MANAGER SECURITY AND SAFETY Height 165.1 cm (5' 5) 07/26/2020 9:49 AM MANAGER SECURITY AND SAFETY Body Mass Index 27.92 07/26/2020 9:49 AM MANAGER SECURITY AND SAFETY Plan of Treatment Health Maintenance Due Date Last Done Comments Kidney Health Evaluation 1945 Diabetes: Retinopathy Eye Exam 1962 Pneumococcal Vaccine: 50+ Years (1 of 2 - PCV) 10/30/1963 Zoster Vaccines (1 of 2) 1994 Annual Medicare Wellness Visit 2009 Dexa Scan (General) 2009 Lipid Panel 09/06/2017 09/06/2016, 09/06/2016 RSV Immunization or 60+ Years (1 - 1-dose 75+ series) 10/30/2019 Hemoglobin A1C 01/23/2021 07/26/2020, 02/12, 08/18/2019, Additional history exists COVID-19 Vaccine ( - season) 2025 DTaP, Tdap and Td Vaccines (2 - [...] Comments HEMOGLOBIN, GLYCOSYLATED Routine 07/26/2020 9:55 AM MANAGER SECURITY AND SAFETY Type 2 diabetes mellitus without complication, with long-term current use of insulin LIPID PANEL TIMED 09/06/2016 7:41 PM MANAGER SECURITY AND SAFETY from Last 3 Months or Most Recently Relevant to Health Maintenance Results * HEMOGLOBIN, GLYCOSYLATED (07/26/2020 9:55 AM MANAGER SECURITY AND SAFETY) HGB A1C 6.3 % [address] [place] 07/26/2020 9:55 AM MANAGER SECURITY AND SAFETY us Edward Gutierrez MD LABORATORY Final Result [address] [place] [address] [place] [address], [place] [phone] * (ABNORMAL) LIPID PANEL (09/06/2016 7:41 PM MANAGER SECURITY AND SAFETY) CHOLESTEROL 151 0 - 200 MG/DL 09/06/2016 7:41 PM MANAGER SECURITY AND SAFETY [facility] Comment:DESIRABLE: <200 TRIGLYCERIDES 298(H) 0 - 149 MG/DL 09/06/2016 7:41 PM MANAGER SECURITY AND SAFETY [facility] Comment:200-499 HIGH HDL 48 >39 MG/DL 09/06/2016 7:41 PM MANAGER SECURITY AND SAFETY [facility] Comment:NORMAL: 40-60 DIRECT LDL 62 0 - 129 MG/DL 09/06/2016 7:41 PM MANAGER SECURITY AND SAFETY [facility] Comment:<100 OPTIMAL 09/06/2016 7:0 7 PM MANAGER SECURITY AND SAFETY us Generic Conversion Md [facility] Final R esult [facility] [address] [place] [address], [id number] from Last 3 Months or Most Recently Relevant to Health Maintenance Insurance MEDICARE [facility] Care Teams Makeup Artistry Instructor Relationship Specialty Start Date End Date Riddhi Salazar FNP [address] [place] [address] PCP - General NURSE PRACTITIONER 07/26/20
--- OUTSIDE RECORDS SUMMARY | 2025-03-31 12:36 | XMS_ITS | Clinical Summary ---
Author Organization [facility] Anamaria Shabazz Address [address] [place] [address] Care Team Providers Care Glazing Machine Operator Name Role Phone Abraham Crowe DO Primary Care Provider [phone] Allergies Active Allergy Reactions Criticality Noted Date [...] Comments Blood Pressure 127/55 09/06/2022 10:14 AM CLIENT SERVICES DIRECTOR Pulse 86 09/06/2022 10:14 AM CLIENT SERVICES DIRECTOR Temperature 36.7 C (98.1 F) 09/06/2022 10:14 AM CLIENT SERVICES DIRECTOR Respiratory Rate 20 09/06/2022 10:1 4 AM CLIENT SERVICES DIRECTOR Oxygen Saturation 97% 09/06/2022 10: 14 AM CLIENT SERVICES DIRECTOR Inhaled Oxygen Concentration - - Weight 83.4 kg (183 lb 14.4 oz) 023 10:14 AM CLIENT SERVICES DIRECTOR Height 167.6 cm (5' 6) 03/06/2022 9:30 [...] 01/06/2030 Insurance MEDICARE PART A AND B [facility] TRADITIONAL Care Teams Glazing Machine Operator Relationship Specialty Start Date End Date Abraham Crowe DO [address] [place] [address] PCP - General Family Practice 02/20/22
--- OUTSIDE RECORDS SUMMARY | 2025-03-31 12:36 | XMS_ITS | Patient Health Record ---
Author Organization [facility] Address [address] [place], [place] [address] Care Team Providers Care Concrete Pavement Installer Name Role Phone NILO GALSS Unavailable [phone] Riddhi Salazar Unavailable Unavailable Allergies Allergen (clinical drug ingredient) Drug/Non Drug Allergy documented on EMR Reaction Allergy Type Onset Date Status Latex Latex Unknown Allergy 05/25/2022 active Reason For Referral No Information Medications Medication SIG (Take, Route, Frequency, Duration) Notes Start Date End Date Status Meloxicam 7.5 MG Oral; Duration: 30 Days Active Lisinopril 10 MG Oral; Duration: 90 Days Active metFORMIN HCl 1000 MG Oral; Duration: 90 Days Active BD Pen Needle Cortney 2nd Gen 32G X 4 MM ; Duration: 90 Days Active Pravastatin Sodium 80 MG Oral; Duration: 90 Days Active Lantus SoloStar 100 UNIT/ML Subcutaneous ; Duration: 100 Days Active Glimepiride 1 MG Oral; Duration: 90 Days Active Plan Of Treatment No Information Insurance Providers Payer Name Payer Address Payer Phone Subscriber Number Group Number Insured Name Patient Relationship to Insured Coverage Start Date Coverage End Date Medicare Part B [place] [address] [place] [address] [id number] JWTOMASA HODAN Self - patient is the insured [facility] ([facility]) ATTN CLAIMS [address] [place] [address] [id number] JWTOMASA HODAN Self - patient is the insured
== END 2025-03-31 12:26 | disposition home or self-care (01) ==
LOC: CHSIMG 12:27
PROVIDERS: PCP Nurse Practitioner Family; Visit Provider Nurse Practitioner Family
DX: Z78.0 Asymptomatic menopausal state (principal)
CPT/HCPCS: 77080

== ENCOUNTER 2025-07-05 12:51 | Outpatient (CLI) | payer MEDICARE, BC, SELFPAY ==
--- NOTE | ~2025-07-05 | MM_ITS ---
EXAMINATION: MM screening rafael BI w irma HISTORY: Screening. Right lumpectomy/partial mastectomy. TECHNIQUE: Craniocaudal and mediolateral oblique 3-D tomosynthesis images were obtained and synthetic 2-D images were generated. CAD analysis was submitted and interpreted. COMPARISON: 2023, 2022, and 2021. BREAST PARENCHYMAL COMPOSITION: Dense: The breasts are heterogeneously dense, which may obscure small masses. FINDINGS: No suspicious masses are seen. There are no suspicious calcifications. Postop changes are again seen on the right. No unexplained architectural distortion is seen. There are no skin or nipple abnormalities identified. There is no adenopathy seen on the images submitted. IMPRESSION: No mammographic evidence to suggest malignancy is seen. The patient may return to screening mammography as per ACR guidelines. BI-RADS 2 - Benign. Reviewed, dictated and finalized at location A. 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
--- OUTSIDE RECORDS SUMMARY | 2025-07-05 14:24 | XMS_ITS | Clinical Summary ---
Author Organization [facility] Anamaria Shabazz Address [address] [place] [address] Care Team Providers Care Welder And Fitter Name Role Phone Abraham Crowe DO Primary Care Provider [phone] Allergies Active Allergy Reactions Criticality Noted Date [...] Comments Blood Pressure 127/55 09/06/2022 10:14 AM TOURIST ESCORT Pulse 86 09/06/2022 10:14 AM TOURIST ESCORT Temperature 36.7 C (98.1 F) 09/06/2022 10:14 AM TOURIST ESCORT Respiratory Rate 20 09/06/2022 10:1 4 AM TOURIST ESCORT Oxygen Saturation 97% 09/06/2022 10: 14 AM TOURIST ESCORT Inhaled Oxygen Concentration - - Weight 83.4 kg (183 lb 14.4 oz) 023 10:14 AM TOURIST ESCORT Height 167.6 cm (5' 6) 03/06/2022 9:30 [...] 01/06/2030 Insurance MEDICARE PART A AND B [facility] TRADITIONAL Care Teams Welder And Fitter Relationship Specialty Start Date End Date Abraham Crowe DO [address] [place] [address] PCP - General Family Practice 02/20/22
--- OUTSIDE RECORDS SUMMARY | 2025-07-05 14:24 | XMS_ITS | Data Portability ---
Author Organization [facility], Main Office Address [address] [place] [address] Care Team Providers Care Business Systems Architect Name Role Phone NO, PCP Referring Provider Unavailable Assessment No assessment recorded. Plan of Treatment Reminders Order Date Submit Date Provider Last Modified By Organization Details Last Modified Time Details Appointments None recorded. Lab None recorded. Referral None recorded. Procedures None recorded. Surgeries None recorded. Imaging None recorded. Medication Orders True Metrix Glucose Test Strip 023 023 [facility], [address] [place], [address], 3 12:22:52 Patient TargetsNo targets recorded. Patient InstructionsNo instructions recorded. Reason for Referral None Reported. Results Created Date Observation Date Name Description Value Unit Range Abnormal Flag Note LastModifiedBy Organization Detail LastModifiedTime 02/16/20 21 XR, knee No observ ation record ed. [id number] [place] [address], [place], [address], 09/12/2022 04:59:05 Result Notes None recorded. Problems Name Problem SNOMED Code Status Onset Date Resolution Date Notes Provider Name and Address Organization Details Recorded Time Well controlled type 2 diabetes mellitus 633186042 Active 2022 Not Available [facility] 3 03:17:05 Dyslipidemia 421400603 Active 2022 Not Available [facility] 3 03:17:05 Hypertensive disorder 77732990 Active 2022 Not Available [facility] 3 03:17:05 Uncontrolled type 2 diabetes mellitus 353898033 Active 2022 Not Available Pending sale to [facility] 03:17:05 Problem Notes None recorded. Procedures Surgical History Date Name Laterality Status Provider Name and Address Organization Details Recorded Time lumpectomy of the breast and lymph node dissecti completed Not Available Pending sale to [facility] 09/12/2022 04:42:13 Knee Replacement completed Not Available [facility] 09/12/2022 04:42:13 Imaging Results None recorded. Procedure Notes None recorded. Medical Equipment None Reported. Allergies Allergen ID Allergen Name Allergen Category Reaction Reaction Severity Criticality Documentation Date Start Date Code Code System Note Provider Name and Address Organization Details Recorded Time 7246 latex environme nt,medica tion Not available Not available Not available 09/12/2022 69590 91 RxNorm Not Available Pending sale to [facility] 3 04:58:37 Medications Name Sig Start Date Stop [...] Not Available Not Available Not Avai lable clotrimaz ole 1 % topical solution 01/25 [...] 2020 active Not Available Not Available Not Avai lable Cinnamon 500 mg 1x daily active Not Available Not Available No t Available Lantus Solostar U-100 Insulin 100 unit/mL (3 mL) subcutane ous pen 2022 active Not Available Not Available Not Avai lable BD Ultra-Fin e Cortney Pen Needle 32 [...] Not Available Not Available Not Avai lable Trulicity 1.5 mg/0.5 mL subcutane ous pen [...] completed Not Available Not Available Not Available Byjahreon BCise 2 mg/0.85 mL subcutane ous auto-inje ctor Inject 2 mg every week by subcutan eous route in the morning for 30 days. active Not Available Not Available No t Available Vitals Date Recorded Body mass index (BMI) Body height Oxygen saturation Heart rate Body temperature Body weight Systolic And Diastolic Provider Name and Address Organization Details Last Updated DateTime 1 28.6 kg/m2 165.1 cm 96 % 90 /min 99.2 [degF] 56769.8 9 g 120/60 mm[Hg] Not Available Pending sale to [facility] 3 04:45:02 Date Recorded Body weight Heart rate Body temperature Systolic And Diastolic Provider Name and Address Organization Details Last Updated DateTime 01/25/2023 68619.29 g 82 /min 97.6 [degF] 153/72 mm[Hg] JAMESON Lewis [place] - [facility] 01/25/2023 11:03:27 Date Recorded Body height Provider Name an d Address Organization Details Last Updated DateTime 02/15/2021 165.1 cm Not Available Pending sale to [facility] 3 04:45:03 Social History Question Answer Notes LastModified by Organizat ion Details LastModified Time Tobacco Smoking Status Never Smoker Not Available Pending sale to [facility] 09/12/2022 04:27:31 What Is Your Level Of Caffeine Consumption? Moderate [id number] Information not available 09/12/2022 How Much Tobacco Do You Chew? None [id number] Information not available 09/12/2022 In The 14 Days Before Symptom Onset, Have You Had Close Contact With A Laboratory-confirm ed COVID-19 While That Case Was Ill? No [id number] Information not available 09/12/2022 In The 14 Days Before Symptom Onset, Have You Had Close Contact With A Person Who Is Under Investigation For COVID-19 While That Person Was Ill? No [id number] Information not available 09/12/2022 Which Illicit Or Recreational Drugs Have You Used? None [id number] Information not available 09/12/2022 Sex: Unknown Functional Status Question Answer Note LastModified by Organizat ion Details LastModified Time What is your level of alcohol consumption? None [id number] Information not available 09/12/2022 Do you or have you ever used smokeless tobacco? Never used smokeless tobacco [id number] Information not available 09/12/2022 What is your occupation? retired [id number] Information not available 09/12/2022 Do you or have you ever used e-cigarettes or vape? Never used electronic cigarettes [id number] Information not available 09/12/2022 Mental Status None recorded. Family History Relationship Description Onset Age of this Age Resolved Age Notes LastModified by Organization Details LastModified Time Maternal Aunt Diabetes mellitus [id number] Not available 09/12/2022 04:42:17 Mother Diabetes mellitus [id number] Not available 09/12/2022 04:42:17 Sister Malignant neoplasm of breast 2 sister [id number] Not available 09/12/2022 04:42:18 Brother Myocardial infarction 2 brothe rs [id number] Not available 09/12/2022 04:42:18 Medical History Condition Response BLINDNESS N KIDNEY STONES N MRSA N CARPAL TUNNEL SYNDROME N LUNG DISEASE/DISORDER N HISTORY OF DRUG ABUSE N RADIATION / CHEMOTHERAPY N COPD N SPORTS INJURY N ANKLE PAIN N BLOOD DISEASES N SURGERY Y SCHIZOPHRENIA N SHINGLES N SHOULDER PAIN N DEPRESSION (INCLUDING POST ) N BOWEL PROBLEMS N STROKE/TIA N ULCERS N KNEE PAIN N BENIGN PROSTATIC HYPERPLASIA N OBESITY N GERD/NAUSEA N ANEURYSM N URINARY/BLADDER/KIDNEY PROBLEMS N CORONARY ARTERY DISEASE (CAD) N ADDICTION CONCERNS N USE OF BLOOD THINNERS N SKIN PROBLEMS N EMPHYSEMA N MUSCLE,JOINT OR BONE PROBLEMS N DVT N STOMACH ULCERS N BLOOD CLOTS N USE OF NSAIDS N CONCUSSION OR SPINAL TRAUMA N NEUROPATHY N AIDS/HIV N FRACTURES N HYPERTENSION N ELBOW PAIN N TOURETTE'S N Metal allergy N ANXIETY DISORDER N BLOOD TRANSFUSION N ANEMIA/BLOOD DISORDER N BIPOLAR DISORDER N BRONCHITIS N OSTEOARTHRITIS N TUBERCULOSIS N FOOT PROBLEM N HEART VALVE DISORDERS N SOFT TISSUE INJURY N ALLERGIES/HAYFEVER N INFECTIOUS DISEASE N HEART ARRHYTHMIA N INSOMNIA N RHEUMATOID ARTHRITIS N HIGH CHOLESTEROL / HYPERLIPIDEMIA N EDEMA N CHRONIC PAIN SYNDROME N CAROTID BLOCKAGE N BACK / NECK PROBLEMS N HAVE YOU BEEN HOSPITALIZED OR SEEN IN [facility] IN THE PAST YEAR ? [...] Diagnosis SNOMED-CT Code Diagnosis ICD10 Code Diagnosis IMO Codes Diagnosis Note [id number] Corine Bonner MD [facility] [place] [address] [place] [address] 11/08/2020 00:00:00 11/08/2020 12:44:53 [id number] Corine Bonner MD [facility] [place] [address] [place] [address] 12/27/2020 00:00:00 12/27/2020 14:54:25 [id number] Srini Schroeder MD [facility] [place] [address] [facility] [address] [place] [address] 02/15/2021 00:00:00 02/15/2021 15:46:26 [id number] Corine Bonner MD [facility] [place] [address] [place] [address] 01/25/2023 10:49:45 01/25/2023 11:40:24 Uncontrolled type 2 diabetes mellitus 640044543 E11.65 A1C of 8.4% up from 7% [...] informatio n in the electronic health record, mauryen param interpreti ng results and communicat ing results [...] Recorded Advance Directives Directive None Recorded Payers Insurance Date Sequence Insurance Name Policy Number Policy Kelly Covered Member ID Kelly Member ID Guarantor Name 01/22/2023 1 [place] Gisele L Greeling [id number] Gisele L Greeling 02/04/2023 2 [place] [id number] Gisele L Greeling [id number] Gisele L Greeling Notes Date Note Type Note Provider Name and Address Organization Details Recorded Time 01/25/2023 text/html ROS as noted in the HPI 77 yo female comes in to re-establish care in management of [...] stop glimepiride with dinner due to some director of informatics lows and continue scale with breakfast only-continued [...] mg/dLCr 1.02 mg/dL Corine Bonner MD [address] [facility] [address], [place], [address], [place] - S [facility] 01/25/2023 13:45:24 OBGyn Episode No OBEpisode recorded.
--- OUTSIDE RECORDS SUMMARY | 2025-07-05 14:24 | XMS_ITS | Clinical Summary ---
Author Organization [facility] Address [facility] [place] [address] Care Team Providers Care Mechanic General Operational Test Name Role Phone Riddhi Salazar STEAMBOAT CAPTAIN Primary Care Provider [phone] Allergies Active Allergy Reactions Criticality Noted Date Comments Latex Rash Low 05/04/2016 Medications aspirin (ASPIRIN LOW DOSE) 81 MG tablet Take 1 tablet by mouth daily. Active Cinnamon 500 MG capsule Take by mouth daily. Active Liberty-3 Fatty Acids (FISH OIL CONCENTRATE) 1000 MG Cap Take 1 capsule by mouth daily. Active meclizine 12.5 MG tablet Take 12.5 mg by mouth 4 (four) times daily. 0 Active multivitamin tablet Take 1 tablet by mouth daily. Active lisinopril 10 MG tabletIndicatio ns:Type 2 diabetes mellitus without complication, with long-term current use of insulin ([facility] HHS/HCC) Take 1 tablet (10 mg total) by mouth daily. 90 tablet 3 1 Active metFORMIN 1000 MG tabletIndicatio ns:Type 2 diabetes mellitus without complication, with long-term current use of insulin ([facility] H[facility]/HCC) Take 1 tablet (1,000 mg total) [...] complication, with long-term current use of insulin ([facility]) Use for injections twice a day 100 Container 11 Active Active Problems Problem Noted Date Diagnosed Date Fungal infection of toenail 07/31/2016 Type 2 diabetes mellitus wit hout complication, with long-term current use of insulin 05/04/2016 Dyslipidemia 05/04/2016 Essential hypertension 05/04/2016 Immunizations [...] Comments Blood Pressure 118/68 07/26/2020 9:49 AM TEMPORARY RECEPTIONIST Pulse 77 07/26/2020 9:49 AM TEMPORARY RECEPTIONIST Temperature 36.2 C (97.2 F) 07/26/2020 9:49 AM TEMPORARY RECEPTIONIST Respiratory Rate 20 07/26/2020 9:49 AM TEMPORARY RECEPTIONIST Oxygen Saturation 97% 07/26/2020 9:49 AM TEMPORARY RECEPTIONIST Inhaled Oxygen Concentration - - Weight 76.1 kg (167 lb 12.8 oz) 07/26/2020 9:49 AM TEMPORARY RECEPTIONIST Height 165.1 cm (5' 5) 07/26/2020 9:49 AM TEMPORARY RECEPTIONIST Body Mass Index 27.92 07/26/2020 9:49 AM TEMPORARY RECEPTIONIST Plan of Treatment Health Maintenance Due Date [...] 75+ series) 10/30/2019 Hemoglobin A1C 01/23/2021 07/26/2020, 08, 08/18/2019, Additional history exists COVID-19 Vaccine ( - 2024- season) 2025 Influenza Adult (#1) 2025 04/10/2017 DTaP, Tdap and Td Vaccines (2 - Td or Tdap) 01/06/2030 01/07/2020 Hepatitis A Vaccines Aged Out No long er eligible based on patient's age to complete this topic Meningococcal B Vaccine Aged Out No l [...] Comments HEMOGLOBIN, GLYCOSYLATED Routine 07/26/2020 9:55 AM TEMPORARY RECEPTIONIST Type 2 diabetes mellitus without complication, with long-term current use of insulin LIPID PANEL TIMED 09/06/2016 7:41 PM TEMPORARY RECEPTIONIST from Last 3 Months or Most Recently Relevant to Health Maintenance Results * HEMOGLOBIN, GLYCOSYLATED (07/26/2020 9:55 AM TEMPORARY RECEPTIONIST) HGB A1C 6.3 % [address] [place] 07/26/2020 9:55 AM TEMPORARY RECEPTIONIST us Edward Gutierrez MD LABORATORY Final Result [address] [place] [address] [place] [address] [address], [place] [phone] * (ABNORMAL) LIPID PANEL (09/06/2016 7:41 PM TEMPORARY RECEPTIONIST) CHOLESTEROL 151 0 - 200 MG/DL 09/06/2016 7:41 PM TEMPORARY RECEPTIONIST [facility] Comment:DESIRABLE: <200 TRIGLYCERIDES 298(H) 0 - 149 MG/DL 09/06/2016 7:41 PM TEMPORARY RECEPTIONIST [facility] Comment:200-499 HIGH HDL 48 >39 MG/DL 09/06/2016 7:41 PM TEMPORARY RECEPTIONIST [facility] Comment:NORMAL: 40-60 DIRECT LDL 62 0 - 129 MG/DL 09/06/2016 7:41 PM TEMPORARY RECEPTIONIST [facility] Comment:<100 OPTIMAL 09/06/2016 7:0 7 PM TEMPORARY RECEPTIONIST us Generic Conversion Md [facility] Final R esult [facility] [address] [place] [address], [place] [phone] [id number] from Last 3 Months or Most Recently Relevant to Health [place] [id number] [facility] Care Teams Mechanic General Operational Test Relationship Specialty Start Date End Date Riddhi Salazar FNP [address] [place] [address] PCP - General NURSE PRACTITIONER 07/26/20
--- OUTSIDE RECORDS SUMMARY | 2025-07-05 14:25 | XMS_ITS | Patient Health Record ---
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 Name Role Phone NILO GLASS Unavailable [phone] SanchezRiddhi jordan Unavailable Unavailable Allergies Allergen (clinical drug ingredient) Drug/Non Drug Allergy documented on EMR Reaction Allergy Type Onset Date Status Latex Latex Unknown Allergy 05/25/2022 active Reason For Referral No Information Medications Medication SIG (Take, Route, Frequency, Duration) Notes Start Date End Date Status Meloxicam 7.5 MG Tablet Oral; Duration: 30 Days Active Lisinopril 10 MG Tablet Oral; Duration: 90 Days Active metFORMIN HCl 1000 MG Tablet Oral; Duration: 90 Days Active BD Pen Needle Cortney 2nd Gen 32G X 4 MM Miscellaneous ; Duration: 90 Days Active Pravastatin Sodium 80 MG Tablet Oral; Duration: 90 Days Acti ve Lantus SoloStar 100 UNIT/ML Solution Pen-injector Subcutaneous; Duration: 100 Days Active Glimepiride 1 MG Tablet Oral; Duration: 90 Days Active Social History Social History Additional Details Category Social Info Options Details Migrated Social History Migrated Social History History of tobacco use : , Smoking Status : Never used tobacco Plan Of Treatment No Information Insurance Providers Payer Name Payer Address Payer Phone Subscriber Number Group Number Insured Name Patient Relationship to Insured Coverage Start Date Coverage End Date Medicare Part [place] [address] [place] [id number] HODAN JARRETT Self - patient is the insured [facility] ([facility]) ATTN CLAIMS [address] [place] [address] [id number] HODAN JARRETT Self - patient is the insured
== END 2025-07-05 12:52 | disposition home or self-care (01) ==
PROVIDERS: PCP Nurse Practitioner Family; Visit Provider Nurse Practitioner Family
DX: Z12.31 Encounter for screening mammogram for malignant neoplasm of breast (principal); E11.59 Type 2 diabetes mellitus with other circulatory complications; I10 Essential (primary) hypertension
CPT/HCPCS: 77063; 77067